=== PATIENT | female | born 1940 | race Caucasian/White ===

== ENCOUNTER 2016-10-08 10:19 | Day surgery (SDC) ==
[2016-07-09 13:55] VITALS: BMI 29.2
[2016-10-08] MEDS ORDERED: LIDOCAINE 1% 20 ML MDV ID ONE (11:42)
[2016-10-08] MEDS ORDERED: LIDOCAINE 1% 20 ML MDV ONE (11:42)
[2016-10-08] MEDS ORDERED: VERSED ONE (11:44)
[2016-10-08] MEDS ORDERED: LIDOCAINE 2% 20 ML MDV ONE (11:44)
[2016-10-08] MEDS ORDERED: DIPRIVAN 20 ML VIAL IVP ONE (11:44)
[2016-10-08] MEDS ORDERED: LIDOCAINE HCL 2% LUER-JET ONE (11:44)
[2016-10-08 13:07] VITALS: BP 156/78; TEMP 98.8
--- NOTE | 2016-10-08 14:35 | OP ---
PROCEDURE: EGD (ESOPHAGOGASTRODUODENOSCOPY) WITH BIOPSY. ENDOSCOPIST: Shelly GRAF M.D. INDICATION: FOLLOW UP ESOPHAGEAL ULCER. INSTRUMENT: [id number]. MEDICATION: PER ANESTHESIA. PROCEDURE: The patient was positioned for endoscopy. The oropharynx was sprayed with Cetacaine spray and the endoscope was advanced through the bite block into the esophagus and from there advanced to the duodenum. The duodenum was normal. The pylorus was patent. There is erythema noted throughout the prepyloric and pyloric area but no discreet ulcer is noted. Biopsies for H. Pylori are obtained from the antrum. On retroflex exam she has a hiatal hernia, an asymptomatic distal esophageal ring is noted. There is no evidence for esophageal ulcers at this time. She tolerated the procedure without immediate complication. PLAN: 1. Will follow up on her pathology. 2. Continue current medications. CC: DR. HITESH SWANN
--- NOTE | 2016-10-08 14:38 | OP ---
PROCEDURE: COLONOSCOPY TO THE CECUM. ENDOSCOPIST: Shelly GRAF M.D. INDICATION: HISTORY OF POLYPS. INSTRUMENT: [id number]. MEDICATION: PER ANESTHESIA. PROCEDURE: The patient was positioned for colonoscopy. The digital rectal exam was negative. The colonoscope was inserted through the anus and advanced to the cecum. The cecum was identified using the ileocecal valve and the appendiceal orifice as landmarks. The scope was slowly withdrawn through an adequately prepped colon. Careful inspection is made of each colonic segment as the scope is withdrawn in a circumferential fashion, care was taken to inspect the proximal side of the ileocecal valve, haustral folds, flexures and rectal valves. Diverticula throughout the left colon with one area of mild inflammation being noted. There were no polyps noted on this exam. The retroflex exam was otherwise negative. She tolerated the procedure without immediate complication. Withdrawal time 7 minutes and 25 seconds. PLAN: 1. Will begin Flagyl for 10 days. 2. Repeat colonoscopy in 5 years. CC: DR. HITESH SWANN
== END 2016-10-08 13:15 | disposition home or self-care (01) ==
LOC: SURG 10:19
PROVIDERS: ATTEND Internal Medicine Gastroenterology
DX: Z86.010 Personal history of colon polyps (principal); K22.10 Ulcer of esophagus without bleeding; K22.2 Esophageal obstruction; K44.9 Diaphragmatic hernia without obstruction or gangrene; K57.30 Diverticulosis of large intestine without perforation or abscess without bleeding; B96.81 Helicobacter pylori [H. pylori] as the cause of diseases classified elsewhere
CPT/HCPCS: 00810; 43239; G0105; 87339

== ENCOUNTER 2017-07-23 14:51 | Emergency (ER) | payer OTHER ==
[2017-07-23 14:58] VITALS: TEMP 98.7; BMI 24.6
[2017-07-23] MEDS ORDERED: DECADRON 4 MG/ML SDV IM STA (15:01)
[2017-07-23 15:02] VITALS: BP 188/66
[2017-07-23] MEDS ORDERED: DUONEB NEB STA (15:02)
[2017-07-23] MEDS ORDERED: ZITHROMAX PO STA (15:33)
[2017-07-23] MEDS ORDERED: ROCEPHIN IM STA (15:33)
[2017-07-23] MEDS ORDERED: LIDOCAINE HCL 1% SDV SUBCUT STA (15:33)
--- NOTE | 2017-07-23 15:40 | DI ---
EXAM: PA and lateral views of the chest HISTORY: Cough with flu symptoms COMPARISON: Chest x-ray 05/02/2016 FINDINGS: The cardiomediastinal silhouette is unchanged in appearance with sternotomy wires in place and cardiac valve unchanged. There is no pneumothorax or pleural effusion. There is no consolidati on, nodule or mass. The osseous structures demonstrate multilevel degenerative disease. IMPRESSION: No acute cardiopulmonary process
--- NOTE | 2017-07-23 16:48 | ED.PDOC ---
General ED Provider: Dr. CLARE PEREZ Chief Complaint: Respiratory Complaint Stated Complaint: FLU LIKE SYMPTOMS Time Seen by Physician: 14:59 (DLU LIKE SYMPTOMS SEEN WITH NURSING STAFF AND HENRIQUE ) Mode of Arrival: Walk-In Information Source: Patient Exam Limitations: No limitations Primary Care Provider: SHIRIN PROCTOR Nursing and Triage Documentation Reviewed and Agree: Yes Reviewed sepsis parameters & appropriate labs ordered?: Yes System Inflammatory Response Syndrome: Not Applicable Sepsis Protocol: For patient's 13 years and over: Temp is 96.8 and below OR 101 and greater Pulse >90 BPM Resp >20/minute Acutely Altered Mental Status Are patient's symptoms suggestive of a new infection, such as: -Pneumonia -Skin, Soft Tissue -Endocarditis -UTI -Bone, Joint Infection -Implantable Device -Acute Abdominal Infection -Wound Infection -Meningitis -Blood Stream Catheter Infection -Unknown System Inflammatory Response Syndrome: Not Applicable Respiratory Complaint Exam - Respiratory Complaint/Exam Onset/Duration: 3 DAYS OF FLU LIKE SYMP BODY ACHES ,COUGH ,CHILLS Symptoms Are: Still present Timing: Constant Initial Severity: Moderate Current Severity: Moderate Location: Nose, Throat, Chest Character: Reports: Non-productive cough Aggravating: Reports: None Alleviating: Reports: Bronchodilators, Spontaneous resolution Associated Signs and Symptoms: Reports: Chills, Nasal congestion, Sore throat. Denies: Rapid breathing, Dyspnea, Fever, Chest pain, Pleuritic chest pain, Wheezing, Hemoptysis, Dizziness, Calf pain, Calf swelling, Edema, URI, Hoarseness, Sinus discomfort, Vomiting, Weight loss, Decreased oral intake, Increased thirst, Increased appetite, Increased urination History of Healthcare-Acquired Pneumonia: No Related Surgical History: Reports: None Pulmonary Embolism Risk Factors: Bedrest Cardiac Risk Factors: Reports: Elevated lipids, Hypertension Tuberculosis Risk Factors: Reports: None Status Asthmaticus Risk Factors: Reports: None Home Oxygen Use: No Recent Stress Test: No Recent Echo/LV Function: No Current Antibiotic Use: No Current Asthma Medication Use: No Respiratory Distress: None Inadequate Respiratory Effort: No Dysphagia Present: No Stridor Present: No JVD Present: No Accessory Muscle Use: No Retractions: Not Present Diminished Breath Sounds: No Sinus Tenderness: None Grunting Respirations: No Kussmaul Respirations: No Differential Diagnoses: Pneumonia, Bronchitis Review of Systems - Review Of Systems Constitutional: Reports: Malaise Eyes: Reports: No symptoms Ears, Nose, Mouth, Throat: Reports: No symptoms Respiratory: Reports: Cough Cardiac: Reports: No symptoms GI: Reports: No symptoms : Reports: No symptoms Musculoskeletal: Reports: No symptoms Skin: Reports: No symptoms Neurological: Reports: No symptoms Endocrine: Reports: No symptoms Hematologic/Lymphatic: Reports: No symptoms All Other Systems: Reviewed and Negative Past Medical History - Past Medical History Endocrine: Reports: Dyslipidemia Cardiovascular: Reports: CAD, Hypertension Respiratory: Reports: Asthma Hematological: Reports: None Gastrointestinal: Reports: None Genitourinary: Reports: None Neuro/Psych: Reports: None, 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) Musculoskeletal: Reports: Arthritis Cancer: Reports: None Last Menstrual Period: N/A - Surgical History General Surgical History: Reports: Stent Placement (cardiac stents, cardiac valve replacement) - Family History Family History: Reports: Unknown - Social History Smoking Status: Former smoker Hx Substance Use: No Alcohol Screening: None Physical Exam - Physical Exam Appearance: Ill-appearing Ill-appearing: Mild Pain Distress: Mild Eyes: YAMILEX, EOMI, Conjunctiva clear ENT: Ears normal, Nose normal, Oropharynx normal Respiratory: Rhonchi, Wheezes Cardiovascular: RRR, Pulses normal, No rub, No murmur GI/: Soft, Nontender, No masses, Bowel sounds normal, No Organomegaly Musculoskeletal: Normal strength, ROM intact, No edema, No calf tenderness Skin: Warm, Dry, Normal color Neurological: Sensation intact, Motor intact, Reflexes intact, Cranial nerves intact, Alert, Oriented Psychiatric: Affect appropriate, Mood appropriate Interpretation - Radiology Interpretation Radiology Interpretation By: Radiologist Radiology Results: Negative Exam Interpreted: CXR Critical Care Note - Critical Care Note Total Time (mins): 0 Course - Course Orders, Labs, Meds: Lab Review 07/23/17 15:05 Influenza A (Rapid) Negative by naat Influenza B (Rapid) Negative by naat Orders Category Date Time Status NEBULIZER TREATMENT Stat CARDIO 07/23/17 15:02 Completed MOLECULAR FLU A/B Stat LAB 07/23/17 15:05 Completed MOLECULAR GROUP A STREP Stat LAB 07/23/17 15:05 Completed Azithromycin [Zithromax] MEDS 07/23/17 15:33 Discontinued 1,000 mg PO ONCE STA Ceftriaxone Sodium [Rocephin] MEDS 07/23/17 15:33 Discontinued 1 gm IM ONCE STA Dexamethasone 4 mg/ml Inj [Decadron 4 mg/ml Sdv] MEDS 07/23/17 15:01 Discontinued 4 mg IM ONCE STA Ipratropium/Albuterol Neb [Duoneb] MEDS 07/23/17 15:02 Discontinued 1 vial NEB ONCE STA Lidocaine HCl/Pf [Lidocaine HCl 1% Sdv] MEDS 07/23/17 15:33 Discontinued 5 ml SUBCUT ONCE STA CHEST, 2 VIEWS PA & LAT Stat RADS 07/23/17 15:01 Completed Medications Discontinued Medications Generic Name Dose Route Start Last Admin Trade Name Doris PRN Reason Stop Dose Admin Albuterol/Ipratropium 1 vial 07/23/17 15:02 07/23/17 15:13 Duoneb NEB 07/23/17 15:03 1 vial ONCE STA Administration Azithromycin 1,000 mg 07/23/17 15:33 07/23/17 15:46 Zithromax PO 07/23/17 15:34 1,000 mg ONCE STA Administration Ceftriaxone Sodium 1 gm 07/23/17 15:33 07/23/17 15:46 Rocephin IM 07/23/17 15:34 1 gm ONCE STA Administration Dexamethasone Sodium Phosphate 4 mg 07/23/17 15:01 07/23/17 15:48 Decadron 4 Mg/Ml Sdv IM 07/23/17 15:02 4 mg ONCE STA Administration Lidocaine HCl 5 ml 07/23/17 15:33 07/23/17 15:47 Lidocaine Hcl 1% Sdv SUBCUT 07/23/17 15:34 2.1 ml ONCE STA Administration Vital Signs: Temp Pulse Resp BP Pulse Ox 07/23/17 14:52 98.7 F 68 24 188/66 H 98 Departure - Departure Time of Disposition: 16:49 (WITH HENRIQUE AT BEDSIDE WENT OVER REPORTS AND TREATMENT DONE AT [facility] AND WHAT PT MUST DO IN AM. ) Disposition: HOME SELF-CARE Discharge Problem: Viral syndrome Instructions: Viral Syndrome (ED) Condition: Good Pt referred to PMD for follow-up: Yes Additional Instructions: Please call your Family Physician as soon as possible to schedule a follow-up appointment. Prescriptions: Hydrocodone/Chlorphen Polis [Tussionex] 5 ml PO Q12HR 7 Days disp.syrin Allergies/Adverse Reactions: Allergies aminophylline Adverse Reaction (Verified 07/23/17 14:58) codeine Adverse Reaction (Verified 07/23/17 14:58) haloperidol [From Haldol] Adverse Reaction (Verified 07/23/17 14:58) Sulfa (Sulfonamide Antibiotics) Adverse Reaction (Verified 07/23/17 14:58) Home Medications: Ambulatory Orders Amlodipine Besylate [Norvasc] 2.5 mg PO BEDTIME 11/26/15 Aspirin [Adult Low Dose Aspirin EC] 81 mg PO DAILY 11/26/15 Calcium Carbonate/Vitamin D3 [Calcium 600 + Vit D Tablet] 1 tab PO DAILY Enalapril Maleate [Vasotec] 5 mg PO DAILY 11/26/15 Furosemide [Lasix] 20 mg PO DAILY 11/26/15 Lovastatin 80 mg PO BEDTIME 11/26/15 Metoprolol Tartrate [Lopressor] 25 mg PO BID 11/26/15 Montelukast Sodium [Singulair] 10 mg PO BEDTIME 11/26/15 Omeprazole [Prilosec] 20 mg PO QDAC 11/26/15 Potassium Chloride 10 meq PO DAILY 11/26/15 Raloxifene HCl [Evista] 60 mg PO DAILY 11/26/15 Carbidopa/Levodopa [Sinemet 25-100] 1 tab PO DAILY 07/09/16 Hydrocodone/Acetaminophen [Cresco 7.5-325 Tablet] 1 each PO Q6HR PRN #20 tablet 07/09/16 Hydrocodone/Chlorphen Polis [Tussionex] 5 ml PO Q12HR 7 Days disp.syrin Disposition Discussed With: Patient, Family
== END 2017-07-23 17:10 | disposition home or self-care (01) ==
LOC: ED 14:51
DX: B34.9 Viral infection, unspecified (principal); E78.5 Hyperlipidemia, unspecified; I10 Essential (primary) hypertension; Z79.899 Other long term (current) drug therapy
CPT/HCPCS: 87502; 87651; 94640; 96372; 99283

== ENCOUNTER 2017-09-13 11:48 | Inpatient (IN) ==
[2017-09-13] MEDS ORDERED: ASPIRIN CHEWABLE PO STA (11:51)
[2017-09-13] MEDS ORDERED: ASPIRIN CHEWABLE ONE (11:52)
[2017-09-13 11:59] VITALS: BMI 22.8
[2017-09-13] MEDS ORDERED: MORPHINE 2 MG/ML SYRINGE IVP STA (12:09)
--- NOTE | 2017-09-13 12:13 | DI ---
EXAM: Chest two view, frontal and lateral views. HISTORY: Chest pain. COMPARISON: 07/23/2017. FINDINGS: Median sternotomy wires and prosthetic cardiac valve again noted. Implantable loop record er also seen. The heart size is normal. Atherosclerotic calcifications are present. There is no pu lmonary vascular congestion. The lungs are clear save for calcified granulomatous changes. No pleur al effusion or pneumothorax is seen. No acute osseous abnormality identified. Since the prior study , there has been no significant interval change. IMPRESSION: No acute cardiopulmonary process.
[2017-09-13] MEDS ORDERED: NON-FORMULARY MEDICATION (Hydrocodone Bit/Acetaminophen 1 TAB) PO PRN (12:46)
--- NOTE | 2017-09-13 12:51 | ED.PDOC ---
General ED Provider: Dr. CLARE PEREZ Chief Complaint: Chest Pain Stated Complaint: CHEST PAIN Time Seen by Physician: 11:49 (SEEN WITH ANGEL PERRY AND TASHI FROM [facility] AT ALL TIMES ALSO AT BEDSIDE ) Mode of Arrival: Walk-In Information Source: Patient Exam Limitations: No limitations Primary Care Provider: KAYLAH QUINN Nursing and Triage Documentation Reviewed and Agree: Yes Reviewed sepsis parameters & appropriate labs ordered?: Yes (PAIN ONSET 9AM ) System Inflammatory Response Syndrome: Not Applicable Sepsis Protocol: For patient's 13 years and over: Temp is 96.8 and below OR 101 and greater Pulse >90 BPM Resp >20/minute Acutely Altered Mental Status Are patient's symptoms suggestive of a new infection, such as: -Pneumonia -Skin, Soft Tissue -Endocarditis -UTI -Bone, Joint Infection -Implantable Device -Acute Abdominal Infection -Wound Infection -Meningitis -Blood Stream Catheter Infection -Unknown System Inflammatory Response Syndrome: Not Applicable Cardiovascular Complaint Exam - Chest Pain Complaint/Exam Onset: Sudden Duration: 0NSET 9AM TODAY ARRIVED WITH 7/10 CHEST PAIN Symptoms Are: Resolved (IMPROVED HAS RESIDUAL PAIN 2/10 AT 1300) Length of Chest Pain Episodes: 4 HRS Initial Severity: Moderate Current Severity: Moderate Location: Reports: Midsternal Pain Radiates: Reports: Left shoulder Character: Reports: Tightness Aggravating: Reports: None Alleviating: Reports: OTC meds (MORPHINE, 02, AND ASPRIN, TOOK ONE 81 MG ASPRIN THIS MORNING) Associated Signs and Symptoms: Denies: Diaphoresis, Nausea, Vomiting, Fever, Palpitations, Cough, Hemoptysis, Back pain, Abdominal pain, Dizziness, Short of air, Calf pain, Calf swelling Related History: Reports: Current ARBs Related Surgical History: Reports: CABG (2007) AMI/ACS Risk Factors: Reports: Sedentary, Hypertension, Dyslipidemia TAD Risk Factors: Reports: Hypertension Pulmonary Embolism Risk Factors: Reports: Bedrest Prior Care for this Complaint: Yes (HAD STENT 2007 ) Recent Stress Test: No Recent Echo/LV Function: No JVD Present: No Subcutaneous Emphysema Present: No Diminshed Breath Sounds: No Reproducible Chest Wall Pain: No Bilateral Pulses Present: No Unequal Pulses Noted: No If Risk Factors for AMI/ACS Consider: EKG, Cardiac Enzymes Differential Diagnoses: ACS, Stable Angina, Unstable Angina, Lower Resp. Infection Quality Indicators For Acute IN or Cardiac Chest Pain: EKG in 10min. (X2) Quality Indicator For Non-Traumatic Chest Pain/Syncope: EKG Performed Quality Indicators For Pneumonia/CAP: SpO2 assessed Review of Systems - Review Of Systems Constitutional: Reports: No symptoms Eyes: Reports: No symptoms Ears, Nose, Mouth, Throat: Reports: No symptoms Respiratory: Reports: No symptoms Cardiac: Reports: Chest pain (MINOR BRUSING ON THE CHEST WALL ) GI: Reports: No symptoms : Reports: No symptoms Musculoskeletal: Reports: No symptoms Skin: Reports: No symptoms Neurological: Reports: No symptoms Endocrine: Reports: No symptoms Hematologic/Lymphatic: Reports: No symptoms All Other Systems: Reviewed and Negative Past Medical History - Past Medical History Previously Healthy: Yes Endocrine: Reports: Dyslipidemia Cardiovascular: Reports: CAD, Hypertension Respiratory: Reports: Asthma Hematological: Reports: None Gastrointestinal: Reports: None Genitourinary: Reports: None Neuro/Psych: Reports: None, 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) Musculoskeletal: Reports: Arthritis Cancer: Reports: None Last Menstrual Period: NA - Surgical History General Surgical History: Reports: Stent Placement (cardiac stents, cardiac valve replacement) - Family History Family History: Reports: Unknown - Social History Smoking Status: Former smoker Hx Substance Use: No Alcohol Screening: None Physical Exam - Physical Exam Appearance: Well-appearing, No pain distress, Well-nourished Eyes: YAMILEX, EOMI, Conjunctiva clear ENT: Ears normal, Nose normal, Oropharynx normal Respiratory: Airway patent, Breath sounds clear, Breath sounds equal, Respirations nonlabored Cardiovascular: RRR, Pulses normal, No rub, No murmur GI/: Soft, Nontender, No masses, Bowel sounds normal, No Organomegaly Musculoskeletal: Normal strength (2 ADJACENT ECCYMOTIC AREAS ON THE CHEST EACH MEASURING 2 CM IN DIAMETER SEE PHOTOS), ROM intact, No edema, No calf tenderness Skin: Warm, Dry, Normal color Neurological: Sensation intact, Motor intact, Reflexes intact, Cranial nerves intact, Alert, Oriented Psychiatric: Affect appropriate, Mood appropriate Physician Notification - Case Discussed Physician Notified: PMD Time of Notification: 13:00 Critical Care Note - Critical Care Note Total Time (mins): 0 Course - Course Hematology/Chemistry: 09/13/17 12:00 09/13/17 12:00 Orders, Labs, Meds: Lab Review 09/13/17 09/13/17 09/13/17 12:00 12:00 12:00 WBC 4.88 RBC 3.33 L Hgb 10.4 L Hct 31.7 L MCV 95.2 MCH 31.2 H MCHC 32.8 RDW Coeff of Domo 14.6 Plt Count 145 Immature Gran % (Auto) 0.4 Neut % (Auto) 58.1 Lymph % (Auto) 30.5 Robeson % (Auto) 9.6 Eos % (Auto) 1.2 Baso % (Auto) 0.2 Immature Gran # (Auto) 0.0 Neut # 2.8 Lymph # 1.5 Robeson # 0.5 Eos # 0.1 Baso # 0.0 PT 10.9 INR 1.07 APTT 24.8 Puncture Site O2 Saturation ABG pH ABG pCO2 ABG pO2 ABG HCO3 ABG Total CO2 ABG Base Excess Sp Test FiO2 % Sodium 144 Potassium 3.9 Chloride 110 H Carbon Dioxide 23 Anion Gap 14.9 BUN 12 Creatinine 0.74 Estimated GFR (MDRD) 76.00 BUN/Creatinine Ratio 16.21 Glucose 103 Calcium 9.3 Total Bilirubin 0.6 AST 23 ALT 13 Alkaline Phosphatase 61 Total Creatine Kinase 49 Troponin I 0.1440 Total Protein 6.4 Albumin 3.9 Globulin 2.5 Albumin/Globulin Ratio 1.56 09/13/17 13:44 WBC RBC Hgb Hct MCV MCH MCHC RDW Coeff of Domo Plt Count Immature Gran % (Auto) Neut % (Auto) Lymph % (Auto) Robeson % (Auto) Eos % (Auto) Baso % (Auto) Immature Gran # (Auto) Neut # Lymph # Robeson # Eos # Baso # PT INR APTT Puncture Site L brachial O2 Saturation 100.0 ABG pH 7.620 H* ABG pCO2 20.8 L ABG pO2 130.0 H ABG HCO3 21.4 L ABG Total CO2 22 ABG Base Excess 0 Sp Test + FiO2 % 21.0 Sodium Potassium Chloride Carbon Dioxide Anion Gap BUN Creatinine Estimated GFR (MDRD) BUN/Creatinine Ratio Glucose Calcium Total Bilirubin AST ALT Alkaline Phosphatase Total Creatine Kinase Troponin I Total Protein Albumin Globulin Albumin/Globulin Ratio Orders Category Date Time Status ABG DRAW REQUEST Stat CARDIO 09/13/17 13:44 Completed EKG-(ED ONLY) Stat CARDIO 09/13/17 11:49 Completed EKG-(ED ONLY) Stat CARDIO 09/13/17 12:30 Completed EKG-(ED ONLY) Stat CARDIO 09/13/17 13:15 Completed EKG-(IP & OP ONLY) DAILY CARDIO 09/14/17 06:00 Ordered EKG-(IP & OP ONLY) DAILY CARDIO 09/15/17 06:00 Ordered EKG-(IP & OP ONLY) DAILY CARDIO 09/16/17 06:00 Ordered INTAKE & OUTPUT Q8HR CARE 09/13/17 14:29 Active NPO REMINDER: IMAGING ONCE CARE 09/13/17 12:58 Completed ABG Stat LAB 09/13/17 13:44 Completed CBC W/ AUTO DIFF Stat LAB 09/13/17 12:00 Completed COMPREHENSIVE METABOLIC PANEL Stat LAB 09/13/17 12:00 Completed CREATINE KINASE Q8H LAB 09/13/17 20:30 Ordered CREATINE KINASE Q8H LAB 09/14/17 04:30 Ordered CREATINE KINASE Stat LAB 09/13/17 12:00 Completed PARTIAL THROMBOPLASTIN TIME Stat LAB 09/13/17 12:00 Completed PT WITH INR Stat LAB 09/13/17 12:00 Completed TROPONIN I Q8H LAB 09/13/17 20:30 Ordered TROPONIN I Q8H LAB 09/14/17 04:30 Ordered TROPONIN I Stat LAB 09/13/17 12:00 Completed Amlodipine Besylate [Norvasc] MEDS 09/13/17 21:00 Active 2.5 mg PO BEDTIME Aspirin [Aspirin Chewable] MEDS 09/13/17 11:52 Discontinued 243 mg .ROUTE .STK-MED ONE Aspirin [Aspirin Chewable] MEDS 09/13/17 11:51 Discontinued 264 mg PO ONCE STA Aspirin [Aspirin Chewable] MEDS 09/14/17 08:00 Active 81 mg PO DAILYWM Enalapril Maleate [Vasotec] MEDS 09/14/17 09:00 Active 5 mg PO DAILY Furosemide [Lasix Tab] MEDS 09/14/17 06:30 Active 20 mg PO QDAC Hydrocodone Bit/Acetaminophen [Tarrs 5-325] MEDS 09/13/17 13:18 Active 1 tab PO Q4-6H PRN Hydrocortisone Sod Succ/Pf [Solu-Cortef 100 mg] MEDS 09/13/17 13:38 Discontinued 100 mg IVP ONCE STA Ketorolac Tromethamine [Toradol] MEDS 09/13/17 13:31 Discontinued 30 mg IVP ONCE STA Lovastatin [Mevacor] MEDS 09/13/17 21:00 Active 80 mg PO BEDTIME Mag-Al Plus//Lidocaine [Gi Cocktail] MEDS 09/13/17 13:37 Discontinued 30 ml PO ONCE STA Metoprolol Tartrate [Lopressor] MEDS 09/13/17 17:30 Active 25 mg PO BIDWM Morphine Sulfate [Morphine 2 mg/ml Syringe] MEDS 09/13/17 12:09 Discontinued 2 mg IVP ONCE STA Sodium Chloride 0.9% [Sodium Chloride] 1,000 ml MEDS 09/13/17 14:28 Active IV 75 mls/hr CHEST, 1V AP ONLY Stat RADS 09/13/17 11:[address] CHEST W/CONTRAST Stat RADS 09/13/17 12:56 Completed Medications Generic Name Dose Route Start Last Admin Trade Name Freq PRN Reason Stop Dose Admin Acetaminophen/Hydrocodone Bitart 1 tab 09/13/17 13:18 Tarrs 5-325 PO Q4-6H PRN PAIN Amlodipine Besylate 2.5 mg 09/13/17 21:00 Norvasc PO BEDTIME ALONZO Aspirin 81 mg 09/14/17 08:00 Aspirin Chewable PO DAILYWM ALONZO Enalapril Maleate 5 mg 09/14/17 09:00 Vasotec PO DAILY ALONZO Furosemide 20 mg 09/14/17 06:30 Lasix Tab PO QDAC ALONZO Sodium Chloride 1,000 mls @ 75 mls/hr 09/13/17 14:28 Sodium Chloride IV 09/14/17 03:47 .[id number] STA Lovastatin 80 mg 09/13/17 21:00 Mevacor PO BEDTIME ALONZO Metoprolol Tartrate 25 mg 09/13/17 17:30 Lopressor PO BIDWM ALONZO Discontinued Medications Generic Name Dose Route Start Last Admin Trade Name Freq PRN Reason Stop Dose Admin Al Hydroxide/Mg Hydroxide 30 ml 09/13/17 13:37 09/13/17 14:08 Gi Cocktail PO 09/13/17 13:38 30 ml ONCE STA Administration Aspirin 264 mg 09/13/17 11:51 09/13/17 14:22 Aspirin Chewable PO 09/13/17 11:52 Not Given ONCE STA Hydrocortisone Sodium Succinate 100 mg 09/13/17 13:38 09/13/17 14:09 Solu-Cortef 100 Mg IVP 09/13/17 13:39 100 mg ONCE STA Administration Ketorolac Tromethamine 30 mg 09/13/17 13:31 09/13/17 14:12 Toradol IVP 09/13/17 13:32 30 mg ONCE STA Administration Morphine Sulfate 2 mg 09/13/17 12:09 09/13/17 12:16 Morphine 2 Mg/Ml Syringe IVP 09/13/17 12:10 2 mg ONCE STA Administration Vital Signs: Temp Pulse Resp BP Pulse Ox 09/13/17 11:49 97.2 F L 59 L 22 136/80 97 ILENE Risk Score ILENE Risk Score: Risk Score Odds of by 30D 0 0.1 (0.1-0.2) 1 0.3 (0.2-0.3) 2 0.4 (0.3-0.5) 3 0.7 (0.6-0.9) 4 1.2 (1.0-1.5) 5 2.2 (1.9-2.6) 6 3.0 (2.5-3.6) 7 4.8 (3.8-6.1) Departure - Departure Time of Disposition: 14:00 Disposition: ADMITTED INPATIENT Discharge Problem: Chest pain Instructions: Angina (ED), Angina (DC), Chest Pain (ED), Chest Pain (DC) Condition: Good Pt referred to PMD for follow-up: Yes IPMP verified?: No Additional Instructions: Please call your Family Physician as soon as possible to schedule a follow-up appointment. Allergies/Adverse Reactions: Allergies aminophylline Adverse Reaction (Verified 09/13/17 12:01) codeine Adverse Reaction (Verified 09/13/17 12:01) haloperidol [From Haldol] Adverse Reaction (Verified 09/13/17 12:01) Sulfa (Sulfonamide Antibiotics) Adverse Reaction (Verified 09/13/17 12:01) Home Medications: Ambulatory Orders Amlodipine Besylate [Norvasc] 2.5 mg PO BEDTIME 09/13/17 Aspirin 81 mg PO DAILY 09/13/17 Calcium Carbonate/Vitamin D3 [Calcium 1,000 + D3 Caplet] 1 each PO DAILY Enalapril Maleate [Vasotec] 5 mg PO DAILY 09/13/17 Furosemide [Lasix] 20 mg PO DAILY 09/13/17 Hydrocodone Bit/Acetaminophen [Lortab 5-500] 1 tab PO Q4-6H PRN 09/13/17 Lovastatin 80 mg PO BEDTIME 09/13/17 Metoprolol Tartrate [Lopressor] 25 mg PO BID 09/13/17 Montelukast Sodium [Singulair] 10 mg PO BEDTIME 09/13/17 Omeprazole [Prilosec] 20 mg PO QDAC 09/13/17
[2017-09-13] MEDS ORDERED: TORADOL IVP STA (13:31)
[2017-09-13] MEDS ORDERED: GI COCKTAIL PO STA (13:37)
[2017-09-13] MEDS ORDERED: SOLU-CORTEF 100 MG IVP STA (13:38)
--- NOTE | 2017-09-13 14:22 | CT ---
EXAM: CT chest with contrast. HISTORY: Blunt chest trauma 3 days prior. COMPARISON: Radiograph earlier the same day. Chest CT 08/24/2009. TECHNIQUE: Multiple axial images of the chest were obtained following intravenous administration of , low osmolar. Images were reformatted in the sagittal and coronal planes. FINDINGS: There has been previous sternotomy. Heart size is at the upper limits of normal. No win cardial effusion identified. Atherosclerotic calcifications present. There is no evidence for aorti c dissection. No lymphadenopathy identified. There are calcified lymph nodes present. There are mi ld emphysematous changes present bilaterally. No consolidation, pleural effusion or pneumothorax jesús ntified. Calcified granulomatous changes noted. Subcutaneous edema in the upper left breast on axial image 17 noted. Degenerative changes present in the spine. Suspect old bilateral anterior rib fractures. Limited images of the upper abdomen demonstrate no acute finding. IMPRESSION: 1. Suspect contusion of the anterior left upper chest. No acute intrathoracic abnormality. 2. Mild emphysema.
[2017-09-13] MEDS ORDERED: SODIUM CHLORIDE 1,000 ML IV STA (14:28)
[2017-09-13] MEDS ORDERED: TORADOL IVP PRN (16:39)
[2017-09-13] MEDS: LOPRESSOR PO SCH (16:58)
[2017-09-13] MEDS: PROTONIX IV IVP SCH (20:09)
[2017-09-13] MEDS: NORVASC PO SCH (20:09)
[2017-09-13] MEDS: MEVACOR PO SCH (20:09)
[2017-09-13] MEDS: SOLU-CORTEF 100 MG IVP SCH (20:09)
[2017-09-13] MEDS: NORCO 5-325 PO PRN (20:09)
[2017-09-13] MEDS ORDERED: NON-FORMULARY MEDICATION (Amlodipine Besylate [Norvasc] 2.5 MG) PO SCH (21:00)
[2017-09-13] MEDS ORDERED: NON-FORMULARY MEDICATION (Lovastatin [Lovastatin] 80 MG) PO SCH (21:00)
[2017-09-13] MEDS ORDERED: PROTONIX IV 40 MG in SODIUM CHLORIDE 100 ML IV SCH (21:00)
[2017-09-14] MEDS: LASIX TAB PO SCH (06:14)
[2017-09-14] MEDS: NORCO 5-325 PO PRN (06:14)
[2017-09-14] MEDS ORDERED: SODIUM CHLORIDE 500 ML IV SCH (07:30)
[2017-09-14] MEDS ORDERED: SODIUM CHLORIDE 1,000 ML IV SCH (07:30)
[2017-09-14] MEDS: SOLU-CORTEF 100 MG IVP SCH ×2 (08:20→20:49)
[2017-09-14] MEDS: PROTONIX IV IVP SCH ×2 (08:21→20:46)
[2017-09-14] MEDS: ASPIRIN CHEWABLE PO SCH (08:21)
[2017-09-14] MEDS: VASOTEC PO SCH (08:22)
[2017-09-14] MEDS: LOPRESSOR PO SCH ×2 (08:22→17:52)
[2017-09-14] MEDS: NORVASC PO SCH (20:44)
[2017-09-14] MEDS: MEVACOR PO SCH (20:44)
[2017-09-15] MEDS: LASIX TAB PO SCH (05:47)
[2017-09-15] MEDS: VASOTEC PO SCH (08:45)
[2017-09-15] MEDS: LOPRESSOR PO SCH ×2 (08:45→18:10)
[2017-09-15] MEDS: SOLU-CORTEF 100 MG IVP SCH ×2 (08:45→21:13)
[2017-09-15] MEDS: PROTONIX IV IVP SCH ×2 (08:45→21:13)
[2017-09-15] MEDS: ASPIRIN CHEWABLE PO SCH (08:45)
[2017-09-15] MEDS: MEVACOR PO SCH (21:10)
[2017-09-15] MEDS: NORVASC PO SCH (21:11)
[2017-09-16] MEDS: LASIX TAB PO SCH (06:15)
[2017-09-16] MEDS: VASOTEC PO SCH (09:38)
[2017-09-16] MEDS: K-DUR PO SCH ×4 (09:38→20:45)
[2017-09-16] MEDS: SOLU-CORTEF 100 MG IVP SCH (09:38)
[2017-09-16] MEDS: PROTONIX IV IVP SCH (09:39)
[2017-09-16] MEDS: ASPIRIN CHEWABLE PO SCH (09:39)
[2017-09-16] MEDS: LOPRESSOR PO SCH ×2 (09:39→18:22)
[2017-09-16] MEDS ORDERED: PROTONIX PO SCH (11:00)
[2017-09-16] MEDS: PROTONIX PO SCH (18:22)
[2017-09-16] MEDS: PREDNISONE PO SCH (18:22)
[2017-09-16] MEDS: MEVACOR PO SCH (20:44)
[2017-09-16] MEDS: NORVASC PO SCH (20:45)
[2017-09-17] MEDS: PROTONIX PO SCH (05:52)
[2017-09-17] MEDS: LASIX TAB PO SCH (05:52)
[2017-09-17] MEDS: ASPIRIN CHEWABLE PO SCH (09:59)
[2017-09-17] MEDS: VASOTEC PO SCH (09:59)
[2017-09-17] MEDS: LOPRESSOR PO SCH (09:59)
[2017-09-17] MEDS: K-DUR PO SCH (09:59)
[2017-09-17] MEDS: PREDNISONE PO SCH (10:00)
--- NOTE | 2017-09-17 10:00 | PN ---
DATE OF SERVICE: 09/13/17-The patient was seen in the emergency room as well as room 103. REASON FOR HOSPITALIZATION: Chest pain HISTORY OF PRESENT ILLNESS: 73 year old white female had chest tightness superficial to the chest wall also somewhat deep across for 2-3 hour duration before she came to the emergency room. The patient did not have any shortness of breath or sweating. The patient' s says that she had similar type of pain three weeks ago when she went to [place]. In the [facility] she had all cardiac workup according to Dr. Nelson, Dr. Avery at [facility]. The patient's arteries were clear. She was transferred to [facility] because of the valve replacement and possible of aortic regurgitation. The patient had well at [facility] and was discharged because chest pain was mostly noncardiac. REVIEW OF SYSTEMS: CONSTITUTIONAL: No night sweats. No fatigue, malaise, lethargy. No fever or chills. HEENT: Eyes: No visual changes. No eye pain. No eye discharge. ENT: No runny nose. No epistaxis. No sinus pain. No sore throat. No odynophagia. No ear pain. No congestion. RESPIRATORY: No cough, no congestion. No hemoptysis. No shortness of breath. CARDIOVASCULAR: No angina symptoms. No CHF symptoms. No atypical chest pain for CAD. No palpitations. No orthopnea. Chest pain with steady ache across, chest wall pain. Some localized tenderness. Deep chest pains. GASTROINTESTINAL: No abdominal pain. No nausea or vomiting. No diarrhea or constipation. No hematemesis. No hematochezia. Mild epigastric discomfort. Mild reflux symptoms. GENITOURINARY: No urgency. No frequency. No dysuria. No hematuria. No obstructive symptoms. No discharge. No pain. No significant abnormal bleeding. MUSCULOSKELETAL: No musculoskeletal pain. No joint swelling. No arthritis. NEUROLOGICAL: No headache. No neck pain. No syncope. No seizures. No dizziness. PSYCHIATRIC: Not anxious. No depression. No suicidal thoughts. No homicidal thoughts. SKIN: No rash. No lesions. No wounds. ENDOCRINE: No unexplained weight loss. No weight gain. HEMATOLOGIC/LYMPHATIC: No anemia. No purpura. No petechiae. No prolonged or excessive bleeding. No palpable lymph nodes. PHYSICAL EXAMINATION: GENERAL: The patient is oriented to time, place and person. HEENT: Head normocephalic, atraumatic. Eyes: Extraocular muscles are intact. Pupils are equal, round and reactive to light and accommodation. Ears: No lesions. Nose appeared normal. Throat: No exudate or erythema. NECK: Supple. No JVP, no carotid bruit. No lymphadenopathy or thyromegaly. LUNGS: Decreased breath sounds but clear to auscultation. Percussion note normal. Chest symmetrical. HEART: S1, S2, no S3. No murmurs. No cyanosis or clubbing. No ascites. Pulses: Dorsalis pedis and posterior tibial pulses +1 to +2 both sides. ABDOMEN: Soft. Nontender. Bowel sounds active. No CVA tenderness. No mass felt. EXTREMITIES: No edema. Full range of motion of all extremities, equal. NEUROLOGIC: No focal deficit. Cranial nerves II through XII are grossly intact. No headache, no double vision or headache. SKIN: Not dry. Intact. Turgor - normal. LYMPHATIC: No palpable lymph nodes/no lymphedema. MUSCULOSKELETAL: Normal joints with no swelling. Muscle tone is normal. ASSESSMENT: 1. Chest pain seems to be noncardiac so far the cardiac markers are negative. 3 EKG's were done in the emergency room and they are sinus rhythm, bradycardia and no acute changes. CT angiogram was negative except for chest wall contusion. The patient had fallen a couple of weeks ago at home with bruising of the sternum and upper extremity, shoulder area. PLAN: 1. Telemetry 2. EKG 3. Cardiac Markers 4. Toradol IV 30mg 5. Solu-Cortef 100mg Q 12 hours 6. GI cocktail 7. Protonix 8. Continue on the home medications. CONDITION: Stable TIME SPENT: More than 30 minutes MTDD
[2017-09-17 10:16] VITALS: BP 144/53; TEMP 97.8
--- NOTE | 2017-09-17 10:32 | PN ---
DATE OF SERVICE: 09/14/17 SUBJECTIVE: 77 year old white female hospitalized with chest pain. The patient has practically no chest pain, mild chest soreness. All the test reports discussed, the is in the room. REVIEW OF SYSTEMS: CONSTITUTIONAL: No night sweats. No fatigue, malaise, lethargy. No fever or chills. Strength improving. HEENT: Eyes: No visual changes. No eye pain. No eye discharge. ENT: No runny nose. No epistaxis. No sinus pain. No sore throat. No odynophagia. No congestion. RESPIRATORY: No cough, no congestion. No hemoptysis. No shortness of breath. CARDIOVASCULAR: No angina symptoms. No CHF symptoms. No atypical chest pain for CAD. No palpitations. No orthopnea. Mild chest soreness. Mostly chest wall pain. GASTROINTESTINAL: No abdominal pain. No nausea or vomiting. No diarrhea or constipation. No hematemesis. No hematochezia. Appetite improving. GENITOURINARY: No urgency. No frequency. No dysuria. No hematuria. No obstructive symptoms. No discharge. No pain. No significant abnormal bleeding. MUSCULOSKELETAL: No musculoskeletal pain; no joint swelling. NEUROLOGICAL: No headache. No neck pain. No syncope. No seizures. No dizziness. PSYCHIATRIC: Not anxious. No depression. No suicidal thoughts. No homicidal thoughts. SKIN: No rash. No lesions. No wounds. ENDOCRINE: No unexplained weight loss. No weight gain. HEMATOLOGIC/LYMPHATIC: No anemia. No purpura. No petechiae. No prolonged or excessive bleeding. No palpable lymph nodes. PHYSICAL EXAMINATION: GENERAL: The patient is oriented to time, place and person. VITAL SIGNS: Temperature 97.3, pulse 59, respiratory rate 16, blood pressure 120/50 and pulse ox 98%. HEENT: Head normocephalic, atraumatic. Eyes: Extraocular muscles are intact. Pupils are equal, round and reactive to light and accommodation. Ears: No lesions. Nose appeared normal. Throat: No exudate or erythema. NECK: Supple. No JVD, no carotid bruit. No lymphadenopathy or thyromegaly. LUNGS: Decreased breath sounds but clear to auscultation. Percussion note normal. Chest symmetrical. HEART: S1, S2, no S3. No murmurs. No cyanosis or clubbing. No ascites. Pulses: Dorsalis pedis and posterior tibial pulses +1 to +2 both sides. ABDOMEN: Soft. Nontender. Bowel sounds active. No CVA tenderness. No mass felt. EXTREMITIES: No edema. Full range of motion of all extremities, equal. NEUROLOGIC: No focal deficit. Cranial nerves II through XII are grossly intact. No headache, no double vision or headache. SKIN: Not dry. Intact. Turgor - normal. LYMPHATIC: No palpable lymph nodes/no lymphedema. MUSCULOSKELETAL: Normal joints with no swelling. Muscle tone is normal. LABS: Hgb 9.7, hct 29, WBC 4,300 normal differential, creatinine 0.7, BUN 15, potassium 4.2 ASSESSMENT: 1. Chest pain seems to be chest wall pain 2. Coronary artery disease with history of stent 3. Aortic valve replacement 4. Reflux symptoms PLAN: 1. Continue the same treatment with Toradol and Steroids CONDITION: Improving. TIME SPENT: More than 30 minutes. Plan and coordination of the patient's care discussed in the presence of nurse. HUE
--- NOTE | 2017-09-17 11:42 | CM.DICTOOL ---
ADMISSION: 09/13/17 14:42 DISCHARGE: 2017 DATE OF SERVICE: 09/17/17 FINAL DIAGNOSIS CHEST PAIN, NON-CARDIAC CHEST WALL CONTUSION POST FALL HYPOKALEMIA ANEMIA EMPHYSEMA IMPLANTABLE LOOP RECORDER HYPERTENSION DYSLIPIDEMIA CAD WITH CARDIAC STENT APPLICATION VALVE REPLACEMENT, AORTIC CATARACT EXTRACTION CHOLECYSTECTOMY PREVIOUS SMOKER LAST VITALS Temp Pulse Resp BP Pulse Ox 97.8 F 66 20 144/53 H 100 09/17/17 10:00 09/17/17 10:00 09/17/17 10:00 09/17/17 10:00 09/17/17 10:00 ACTIVE HOME MEDICATIONS Acetaminophen/Hydrocodone Bitart ([place] 5-325) 1 tab PO Q4-6H PRN PRN Reason: PAIN Last Admin: 09/14/17 06:14 Dose: 1 tab Amlodipine Besylate (Norvasc) 2.5 mg PO BEDTIME [facility] Last Admin: 09/16/17 20:45 Dose: 2.5 mg Aspirin (Aspirin Chewable) 81 mg PO DAILYWM [facility] Last Admin: 09/17/17 09:59 Dose: 81 mg Enalapril Maleate (Vasotec) 5 mg PO DAILY [facility] Last Admin: 09/17/17 09:59 Dose: 5 mg Furosemide (Lasix Tab) 20 mg PO QDAC [facility] Last Admin: 09/17/17 05:52 Dose: 20 mg Lovastatin (Mevacor) 80 mg PO BEDTIME [facility] Last Admin: 09/16/17 20:44 Dose: 80 mg Metoprolol Tartrate (Lopressor) 25 mg PO BIDWM [facility] Last Admin: 09/17/17 09:59 Dose: 25 mgmg PO BIDAC [facility] Omeprazole (Prilosec) 20 mg PO QDAC Last Admin: Montelukast Sodium (Singulair) 10 mg PO Bedtime Last Admin: Calcium Carbonate/Vitamin D3 1 each Daily Last Admin: ALLERGIES aminophylline Adverse Reaction (Verified 09/13/17 12:01) codeine Adverse Reaction (Verified 09/13/17 12:01) haloperidol [From Haldol] Adverse Reaction (Verified 09/13/17 12:01) Sulfa (Sulfonamide Antibiotics) Adverse Reaction (Verified 09/13/17 12:01) NEW PRESCRIPTIONS: K-tab 10 meq daily Prednisone 10 mg BID for 4 days SMOKING: Not Applicable DISEASE SPECIFIC EDUCATION: New Medications Activity Safety Appointment LAB REVIEW: 09/17/17 05:11 09/17/17 05:11 09/17/17 05:11: Sodium 142, Potassium 4.0, Chloride 111 H, Carbon Dioxide 24, Anion Gap 11.0, BUN 19 H, Creatinine 0.67, Estimated GFR (MDRD) 85.00, BUN/ Creatinine Ratio 28.35, Glucose 112, Calcium 8.6, Total Bilirubin 0.5, AST 28, ALT 28, Alkaline Phosphatase 48 L, Total Protein 5.4 L, Albumin 3.3 L, Globulin 2.1, Albumin/Globulin Ratio 1.57 09/17/17 05:11: WBC 6.87, RBC 3.11 L, Hgb 9.6 L, Hct 29.0 L, MCV 93.2, MCH 30.9 , MCHC 33.1, RDW Coeff of Domo 14.7, Plt Count 133 L, Immature Gran % (Auto) 0.9 , Neut % (Auto) 71.3, Lymph % (Auto) 19.8, [place] % (Auto) 7.9, Eos % (Auto) 0.0, Baso % (Auto) 0.1, Immature Gran # (Auto) 0.1, Neut # 4.9, Lymph # 1.4, [place] # 0.5, Eos # 0.0, Baso # 0.0 09/16/17 14:10: Potassium 3.1 L PLAN: Discharge home Diet: Regular diet Activity: Resume activity as tolerated Suggestion to remove throw rugs in the home Continue medications as listed on nursing discharge information sheet An appointment is scheduled with Dr. Umaña/Adilia Burciaga APRN on September 20, 2017 AT 1:15 PM Mrs. Hurtado is alert and oriented x 3. Mrs. Hurtado denies chest pain at rest or with exertion. She is independent with ambulation and activities of daily living. She does not require use of an assistive device for ambulation. No abdominal pain or nausea reported. No urinary or bowel incontinence noted. Meal intakes have been 75-100% since her admission. Skin is intact and free of decubitus ulcers, abrasions or rashes. Areas of ecchymosis in various shades of purple/yellow are noted acrosss the upper chest, both upper arms and a small area to the left jaw. Ron Umaña MD Adilia Burciaga APRN
--- NOTE | 2017-09-17 13:29 | DS ---
DATE OF SERVICE: 09/17/17 FINAL DIAGNOSIS: 1. Chest pain, noncardiac 2. Chest wall contusion post fall 3. Hypokalemia 4. Anemia 5. Emphysema 6. Implantable loop recorder 7. Hypertension 8. Dyslipidemia 9. CAD with cardiac stent application 10.Valve replacement, aortic 11.Cataract extraction 12.Cholecystectomy 13.Previous smoker LAST VITALS: Temperature 97.8, pulse 66, respiratory rate 20, blood pressure 144/53 and pulse ox 100. DISCHARGE INSTRUCTIONS: Discharge home. Continue medications as listed on nursing discharge information sheet. An appointment is scheduled with Dr. Umaña/Adilia Burciaga APRN on September 20, 2017 at 1:15pm. MEDICATIONS AT DISCHARGE: [place] 5-325 Q 4-6 hours PRN Norvasc 2.5mg PO bedtime Aspirin 81mg Po daily Vasotec 5mg PO daily Lasix 20mg PO QDAC Mevacor 80,g PO bedtime Lopressor 25mg PO twice a day Prilosec 20mg PO QDAC Singulair 10mg PO bedtime Calcium Carbonate/Vitamin D 3 one each daily ALLERGIES: Aminophylline Codeine Haloperidol Sulfa NEW PRESCRIPTIONS: K-tab 10 meq daily Prednisone 10mg twice a day for 4 days DIET INSTRUCTIONS: Regular diet ACTIVITY: Resume activity as tolerated. Suggestion to remove throw rugs in the home. SMOKING: N/A DISEASE SPECIFIC EDUCATION: New Medication Activity Safety Appointment HOSPITAL COURSE: 77 year old black female hospitalized with chest pain which was substernal crushing type. Also more or less superficial but she also described some as deep. She was workup at [facility] and [facility] in last three weeks with negative results for any ischemia or valvular problems. The pain originating from any valvular. During the stay in the hospital the patient was noted to have normal cardiac markers, EKG was practically was unchanged and acute findings. CT scan of the chest revealed contusion of the chest wall. She had fallen a couple of weeks ago. The patient was treated with Toradol IV and steroids and condition improved. She was up and about with normal appetite. Telemetry did not show any arrhythmia of any significance with no ST-T wave change. The condition at the time of discharge is stable. She was advised to continue the same medication K-Tab 10 meq daily was given with her Lasix, she is already on. The patient is DNR. TIME SPENT: More than 60 minutes. MTDD
--- NOTE | 2017-09-17 13:31 | PN ---
09/13/17: Level 5 09/14/17: Intermediate 09/15/17: Intermediate 09/16/17: Intermediate 09/17/17: D as in discharge MTDD
--- NOTE | 2017-09-17 13:37 | PN ---
DATE OF SERVICE: 09/17/17 SUBJECTIVE: 77 year old white female hospitalized with chest pain. The patient's chest pain has practically subsided. It was more like a chest wall pain with contusion. She has history of coronary artery disease with stent. Her cardiovascular status is stable. REVIEW OF SYSTEMS: CONSTITUTIONAL: No night sweats. No fatigue, malaise, lethargy. No fever or chills. HEENT: Eyes: No visual changes. No eye pain. No eye discharge. ENT: No runny nose. No epistaxis. No sinus pain. No sore throat. No odynophagia. No congestion. RESPIRATORY: No cough, no congestion. No hemoptysis. No shortness of breath. CARDIOVASCULAR: No angina symptoms. No CHF symptoms. No atypical chest pain for CAD. No palpitations. No orthopnea. GASTROINTESTINAL: No abdominal pain. No nausea or vomiting. No diarrhea or constipation. No hematemesis. No hematochezia. GENITOURINARY: No urgency. No frequency. No dysuria. No hematuria. No obstructive symptoms. No discharge. No pain. No significant abnormal bleeding. MUSCULOSKELETAL: No musculoskeletal pain; no joint swelling. NEUROLOGICAL: No headache. No neck pain. No syncope. No seizures. No dizziness. PSYCHIATRIC: Not anxious. No depression. No suicidal thoughts. No homicidal thoughts. SKIN: No rash. No lesions. No wounds. ENDOCRINE: No unexplained weight loss. No weight gain. HEMATOLOGIC/LYMPHATIC: No anemia. No purpura. No petechiae. No prolonged or excessive bleeding. No palpable lymph nodes. PHYSICAL EXAMINATION: VITAL SIGNS: Stable with temperature 98.5, pulse 58, respiratory rate 20, blood pressure 160/60 and pulse ox 98%. HEENT: Head normocephalic, atraumatic. Eyes: Extraocular muscles are intact. Pupils are equal, round and reactive to light and accommodation. Ears: No lesions. Nose appeared normal. Throat: No exudate or erythema. NECK: Supple. No JVD, no carotid bruit. No lymphadenopathy or thyromegaly. LUNGS: Clear to auscultation. Percussion note normal. Chest symmetrical. HEART: S1, S2, no S3. No murmurs. No cyanosis or clubbing. No ascites. Pulses: Dorsalis pedis and posterior tibial pulses +1 to +2 both sides. ABDOMEN: Soft. Nontender. Bowel sounds active. No CVA tenderness. No mass felt. EXTREMITIES: No edema. Full range of motion of all extremities, equal. NEUROLOGIC: No focal deficit. Cranial nerves II through XII are grossly intact. No headache, no double vision or headache. SKIN: Not dry. Intact. Turgor - normal. LYMPHATIC: No palpable lymph nodes/no lymphedema. MUSCULOSKELETAL: Normal joints with no swelling. Muscle tone is normal. LABS: Hgb 9.6, hct 29 stable, potassium was low yesterday and now it 4.2. ASSESSMENT: 1. Chest pain, noncardiac 2. Hypokalemia, resolved. CONDITION: Stable. TIME SPENT: More than 30 minutes. Plan and coordination of the patient's care discussed in the presence of nurse. HUE
--- NOTE | 2017-09-17 14:41 | HP ---
DATE OF SERVICE: 09/13/17 (The patient was seen in the emergency room as well as in Room 103 on 09/13/17) REASON FOR HOSPITALIZATION: Chest pain. HISTORY OF PRESENT ILLNESS: 77-year-old white female came to the emergency room with complaint of having chest pain of a couple hours duration which was across the middle of the chest, substernal described as 2 to 9 on scale of 1 to 10. The patient had no sweating , no shortness of breath. All cardiac markers, troponin negative. The patient had three EKGs done in the emergency room and at that time they were all showing sinus rhythm with no acute changes with sinus bradycardia. The patient had similar type of chest pain two weeks ago and she was taken to [facility] where the workup for any coronary insufficiency was negative including what looks like coronary angiogram. After that she was transferred to [facility] for possibility of any valve problems which she had [place] [address] Marte. The workup was negative at [facility] so she was discharged home. The patient had fallen one week ago with some bruising and chest wall contusion. PAST MEDICAL/SURGICAL HISTORY: Aortic valve replacement, [address] Marte Coronary artery disease with stent, 2008 Hypertension Dyslipidemia Bilateral cataract CVA, 01/2016 Status post cholecystectomy Anemia REVIEW OF SYSTEMS: CONSTITUTIONAL: Weakness and fatigue. No night sweats. No malaise, lethargy. No fever or chills. HEENT: Eyes: No visual changes. No eye pain. No eye discharge. ENT: No runny nose. No epistaxis. No sinus pain. No sore throat. No odynophagia. No ear pain. No congestion. RESPIRATORY: No cough, no congestion. No hemoptysis. No shortness of breath. CARDIOVASCULAR: Chest wall pain. No exertional chest discomfort. No angina symptoms. No CHF symptoms. No palpitations. No PND. No orthopnea. GASTROINTESTINAL: No abdominal pain. No nausea or vomiting. No diarrhea or constipation. No hematemesis. No hematochezia. GENITOURINARY: No urgency. No frequency. No dysuria. No hematuria. No obstructive symptoms. No discharge. No pain. No significant abnormal bleeding. MUSCULOSKELETAL: No musculoskeletal pain. No joint swelling. No arthritis. NEUROLOGICAL: No headache. No neck pain. No syncope. No seizures. No dizziness. PSYCHIATRIC: Not anxious. No depression. No suicidal thoughts. No homicidal thoughts. SKIN: No rash. No lesions. No wounds. ENDOCRINE: No unexplained weight loss. No weight gain. HEMATOLOGIC/LYMPHATIC: No anemia. No purpura. No petechiae. No prolonged or excessive bleeding. No palpable lymph nodes. PERSONAL/FAMILY/SOCIAL HISTORY: The patient is , lives with the . Nonsmoker. No alcohol abuse. Four children. The patient's parents are . She does all activity of daily living. Intelligent. MEDICATIONS: Vasotec 5 mg p.o. daily Metoprolol 25 mg twice a day Norvasc 2.5 at bedtime Lasix 20 mg p.o. daily Lovastatin 80 mg p.o. at h.s. Prilosec 20 mg p.o. daily [place] 5/500 p.r.n. Calcium supplements ALLERGIES: AMINOPHYLLINE, CODEINE, ALLOPURINOL, SULFA PHYSICAL EXAMINATION: GENERAL: The patient is oriented to time, place and person. VITAL SIGNS: Temperature 98.3, pulse 60, respiratory rate 15, BP 120/50, pulse ox 98%. HEENT: Face is symmetrical. Head normocephalic, atraumatic. Eyes: Extraocular muscles are intact. Sclerae nonicteric. Pupils are equal, round and reactive to light and accommodation. Ears: No lesions. Nose appeared normal. Throat: No exudate or erythema. NECK: Supple. No JVP, no carotid bruit. No lymphadenopathy or thyromegaly. LUNGS: Lungs are clear to auscultation. Percussion note normal. Chest symmetrical. HEART: PMI not palpable. On auscultation S1, S2, no S3. Grade I/ systolic murmur. No cyanosis or clubbing. No ascites. Pulses: Dorsalis pedis and posterior tibial pulses +1 bilaterally. ABDOMEN: Soft. Nontender. No organomegaly. Bowel sounds active. No CVA tenderness. No mass felt. EXTREMITIES: No edema. Full range of motion of all extremities, equal. ENGAGEMENT LIAISON: Mental status normal. Deep tendon reflexes, motor and sensory normal. No headache, no double vision or headache. SKIN: Normal. Intact. Turgor - normal. LYMPHATIC: No palpable lymph nodes/no lymphedema. MUSCULOSKELETAL: Normal joints with no swelling. Muscle tone is normal. EKG done three times in the ER - sinus rhythm, bradycardia. No acute changes. Chest x-ray normal. CT angiogram showed contusion of the chest wall otherwise no acute findings. Creatinine, BUN normal. CBC showed anemia which is chronic. Cardiac markers are negative for any acute myocardial event. ASSESSMENT: 1. CHEST PAIN LIKELY NONCARDIAC, CHEST WALL PAIN FROM CONTUSION. 2. CORONARY ARTERY DISEASE WITH STENT 2008. 3. AORTIC VALVE REPLACEMENT, 2010. 4. CVA, JANUARY 2016. 5. HYPERTENSION. 6. DYSLIPIDEMIA. 7. ANEMIA. 8. REFLUX DISEASE. PLAN: 1. Admit the patient. 2. Routine telemetry orders with serial cardiac markers. 3. Toradol 30 mg IV q.8. 4. Steroids. 5. Reflux treatment. CONDITION: Stable. TIME SPENT: More than 70 minutes. MTDD
--- NOTE | 2017-09-18 14:16 | PN ---
DATE OF SERVICE: 09/16/17 SUBJECTIVE: 77 year old white female hospitalized with chest pain. The patient was about to be discharged but the potassium was reported as 2.8 so the patient has severe hypokalemia. We will give her K-tab 20meq four times a day daily and recheck the Potassium. She is up and about with mild soreness in the chest gannon. REVIEW OF SYSTEMS: CONSTITUTIONAL: No night sweats. No fatigue, malaise, lethargy. No fever or chills. HEENT: Eyes: No visual changes. No eye pain. No eye discharge. ENT: No runny nose. No epistaxis. No sinus pain. No sore throat. No odynophagia. No congestion. RESPIRATORY: No cough, no congestion. No hemoptysis. No shortness of breath. CARDIOVASCULAR: No angina symptoms. No CHF symptoms. No atypical chest pain for CAD. No palpitations. No orthopnea. GASTROINTESTINAL: No abdominal pain. No nausea or vomiting. No diarrhea or constipation. No hematemesis. No hematochezia. GENITOURINARY: No urgency. No frequency. No dysuria. No hematuria. No obstructive symptoms. No discharge. No pain. No significant abnormal bleeding. MUSCULOSKELETAL: No musculoskeletal pain; no joint swelling. NEUROLOGICAL: No headache. No neck pain. No syncope. No seizures. No dizziness. PSYCHIATRIC: Not anxious. No depression. No suicidal thoughts. No homicidal thoughts. SKIN: No rash. No lesions. No wounds. ENDOCRINE: No unexplained weight loss. No weight gain. HEMATOLOGIC/LYMPHATIC: No anemia. No purpura. No petechiae. No prolonged or excessive bleeding. No palpable lymph nodes. PHYSICAL EXAMINATION: GENERAL: The patient is oriented to time, place and person. VITAL SIGNS: Temperature 98, pulse 56, respiratory rate 12, blood pressure 170/ 56 and pulse ox 96%. HEENT: Head normocephalic, atraumatic. Eyes: Extraocular muscles are intact. Pupils are equal, round and reactive to light and accommodation. Ears: No lesions. Nose appeared normal. Throat: No exudate or erythema. NECK: Supple. No JVD, no carotid bruit. No lymphadenopathy or thyromegaly. LUNGS: Decreased breath sounds but clear to auscultation. Percussion note normal. Chest symmetrical. HEART: S1, S2, no S3. No murmurs. No cyanosis or clubbing. No ascites. Pulses: Dorsalis pedis and posterior tibial pulses +1 to +2 both sides. ABDOMEN: Soft. Nontender. Bowel sounds active. No CVA tenderness. No mass felt. EXTREMITIES: No edema. Full range of motion of all extremities, equal. NEUROLOGIC: No focal deficit. Cranial nerves II through XII are grossly intact. No headache, no double vision or headache. SKIN: Not dry. Intact. Turgor - normal. LYMPHATIC: No palpable lymph nodes/no lymphedema. MUSCULOSKELETAL: Normal joints with no swelling. Muscle tone is normal. LABS: Hgb 9.9, hct 30, WBC 7,100 normal differential, potassium 2.8. ASSESSMENT: 1. Chest pain, noncardiac 2. Aortic valve replacement, stable 3. Coronary artery disease with stent, stable 4. Hypokalemia PLAN: 1. Give Potassium supplement 2. Systolic blood pressure is up because the patient says that the has probably early dementia and he was very angry. She doesn't whether he will come and pick her up or not. She is concerned about it. TIME SPENT: More than 30 minutes. Plan and coordination of the patient's care discussed in the presence of nurse. HUE
--- NOTE | 2017-09-18 15:10 | PN ---
DATE OF SERVICE: 09/15/17 SUBJECTIVE: 77 year old white female hospitalized with chest pain. The patient's chest pain seems to be noncardiac but she is feeling a lot better. She is up and about. Still has mild chest soreness from contusion. REVIEW OF SYSTEMS: CONSTITUTIONAL: No night sweats. No fatigue, malaise, lethargy. No fever or chills. HEENT: Eyes: No visual changes. No eye pain. No eye discharge. ENT: No runny nose. No epistaxis. No sinus pain. No sore throat. No odynophagia. No congestion. RESPIRATORY: No cough, no congestion. No hemoptysis. No shortness of breath. CARDIOVASCULAR: No angina symptoms. No CHF symptoms. No atypical chest pain for CAD. No palpitations. No orthopnea. Chest wall soreness with contusion. GASTROINTESTINAL: No abdominal pain. No nausea or vomiting. No diarrhea or constipation. No hematemesis. No hematochezia. Appetite has improved. GENITOURINARY: No urgency. No frequency. No dysuria. No hematuria. No obstructive symptoms. No discharge. No pain. No significant abnormal bleeding. MUSCULOSKELETAL: No musculoskeletal pain; no joint swelling. NEUROLOGICAL: No headache. No neck pain. No syncope. No seizures. No dizziness. PSYCHIATRIC: Not anxious. No depression. No suicidal thoughts. No homicidal thoughts. SKIN: No rash. No lesions. No wounds. ENDOCRINE: No unexplained weight loss. No weight gain. HEMATOLOGIC/LYMPHATIC: No anemia. No purpura. No petechiae. No prolonged or excessive bleeding. No palpable lymph nodes. PHYSICAL EXAMINATION: GENERAL: The patient is oriented to time, place and person. VITAL SIGNS: Temperature 97.8, pulse 56, respiratory rate 14, blood pressure 156/50 and pulse ox 98%. HEENT: Head normocephalic, atraumatic. Eyes: Extraocular muscles are intact. Pupils are equal, round and reactive to light and accommodation. Ears: No lesions. Nose appeared normal. Throat: No exudate or erythema. NECK: Supple. No JVD, no carotid bruit. No lymphadenopathy or thyromegaly. LUNGS: Decreased breath sounds but clear to auscultation. Percussion note normal. Chest symmetrical. HEART: S1, S2, no S3. No murmurs. No cyanosis or clubbing. No ascites. Pulses: Dorsalis pedis and posterior tibial pulses +1 to +2 both sides. ABDOMEN: Soft. Nontender. Bowel sounds active. No CVA tenderness. No mass felt. EXTREMITIES: No edema. Full range of motion of all extremities, equal. NEUROLOGIC: No focal deficit. Cranial nerves II through XII are grossly intact. No headache, no double vision or headache. SKIN: Not dry. Intact. Turgor - normal. LYMPHATIC: No palpable lymph nodes/no lymphedema. MUSCULOSKELETAL: Normal joints with no swelling. Muscle tone is normal. LABS: Hgb 9.4, hct 27, WBC 6,200 normal differential, creatinine 0.6, BUN 18, potassium 3.6. ASSESSMENT: 1. Chest pain seems to be noncardiac 2. Coronary artery disease with stent 3. Aortic valve replacement 4. Generalized osteoarthritis 5. Anemia PLAN: 1. Continue Toradol 2. Steroids 3. Up and about 4. Continue to monitor cardiac rhythm 5. No evidence of acute SC or ischemia 6. The patient's chest pain is noncardiac. CONDITION: Stable. TIME SPENT: More than 30 minutes. Plan and coordination of the patient's care discussed in the presence of nurse. HUE
== END 2017-09-17 12:25 | disposition home or self-care (01) | DRG 313 ==
LOC: ED 11:48 → MEDSURG A 14:42
PROVIDERS: ADMIT Internal Medicine; ATTEND Internal Medicine
DX: R07.89 Other chest pain (principal); S20.219A Contusion of unspecified front wall of thorax, initial encounter; I10 Essential (primary) hypertension; I25.10 Atherosclerotic heart disease of native coronary artery without angina pectoris; D64.9 Anemia, unspecified; E87.6 Hypokalemia; J43.9 Emphysema, unspecified; E78.5 Hyperlipidemia, unspecified; M15.9 Polyosteoarthritis, unspecified; W19.XXXA Unspecified fall, initial encounter; Z95.1 Presence of aortocoronary bypass graft; Z95.2 Presence of prosthetic heart valve; Z79.899 Other long term (current) drug therapy; Z87.891 Personal history of nicotine dependence; Z86.73 Personal history of transient ischemic attack (TIA), and cerebral infarction without residual deficits; Z95.5 Presence of coronary angioplasty implant and graft; Z95.818 Presence of other cardiac implants and grafts; Z90.49 Acquired absence of other specified parts of digestive tract; Y92.009 Unspecified place in unspecified non-institutional (private) residence as the place of occurrence of the external cause
CPT/HCPCS: 36415; 80053; 82550; 82803; 84132; 84484; 85025; 85610; 85730; 93005; 93010; 96374; 96375; 99223; 99232; 99239; 99284

== ENCOUNTER 2017-09-18 11:45 | Observation (INO) | payer OTHER ==
[2017-09-18] MEDS ORDERED: ASPIRIN CHEWABLE PO STA ×2 (12:00→12:12)
[2017-09-18] MEDS ORDERED: ZOFRAN 4 MG/2 ML IVP STA (12:05)
[2017-09-18] MEDS ORDERED: MORPHINE 2 MG/ML SYRINGE IVP STA (12:06)
--- NOTE | 2017-09-18 12:40 | DI ---
EXAM: Chest one view, frontal view only. HISTORY: Chest pain. COMPARISON: 09/13/2017. FINDINGS: Median sternotomy wires are present. Atherosclerotic calcifications noted. Implantable l oop recorder again seen. The heart size is normal. There is no pulmonary vascular congestion. The lungs are clear. No pleural effusion or pneumothorax is seen. No acute osseous abnormality is ident ified. Old fracture of the proximal right humerus again noted. Since the prior study, there has been no significant interval change. IMPRESSION: No acute cardiopulmonary process.
--- NOTE | 2017-09-18 13:12 | ED.PDOC ---
General ED Provider: Dr. 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 ) Mode of Arrival: Wheelchair Information Source: Patient Exam Limitations: No limitations, Other (WAS D/C OR ISSUE FROM HOSPITAL 1 DAY AGO) Primary Care Provider: KAYLAH QUINN Referred to ED by: Other (SEEN BY ANA FOR SAME ISSUE LAST WEEK WORK UP HAD BEEN NEGATIVE ) Nursing and Triage Documentation Reviewed and Agree: Yes (SEEN WITH ANABELLA AT ALL TIMES ) Reviewed sepsis parameters & appropriate labs ordered?: Yes (PMD SAW PT IN E/D ALSO NO INJURY ) System Inflammatory Response Syndrome: Not Applicable Sepsis Protocol: For patient's 13 years and over: Temp is 96.8 and below OR 101 and greater Pulse >90 BPM Resp >20/minute Acutely Altered Mental Status Are patient's symptoms suggestive of a new infection, such as: -Pneumonia -Skin, Soft Tissue -Endocarditis -UTI -Bone, Joint Infection -Implantable Device -Acute Abdominal Infection -Wound Infection -Meningitis -Blood Stream Catheter Infection -Unknown System Inflammatory Response Syndrome: Not Applicable Cardiovascular Complaint Exam - Chest Pain Complaint/Exam Onset: Gradual Duration: 4 HR PAIN ONSET TODAY Symptoms Are: Still present Timing: Constant Length of Chest Pain Episodes: 4 HRS TOOK SLN HAND CARVER X 3 Initial Severity: Moderate Current Severity: Moderate Location: Reports: Midsternal, Left anterior Pain Radiates: Reports: Epigastrium Character: Reports: Aching, Tightness Aggravating: Reports: None Alleviating: Reports: None Associated Signs and Symptoms: Denies: Diaphoresis, Nausea, Vomiting, Fever, Palpitations, Cough, Hemoptysis, Back pain, Abdominal pain, Dizziness, Short of air, Calf pain, Calf swelling Related History: Reports: Similar episode Related Surgical History: Reports: None History of Healthcare-Acquired Pneumonia: Reports: No AMI/ACS Risk Factors: Reports: Hypertension, Dyslipidemia TAD Risk Factors: Reports: Hypertension Pulmonary Embolism Risk Factors: Reports: None Prior Care for this Complaint: No Recent Stress Test: No Recent Echo/LV Function: No JVD Present: No Subcutaneous Emphysema Present: No Diminshed Breath Sounds: No Reproducible Chest Wall Pain: No Bilateral Pulses Present: No Unequal Pulses Noted: No If Risk Factors for AMI/ACS Consider: EKG, Cardiac Enzymes Review of Systems - Review Of Systems Constitutional: Reports: No symptoms Eyes: Reports: No symptoms Ears, Nose, Mouth, Throat: Reports: No symptoms Respiratory: Reports: No symptoms Cardiac: Reports: Chest pain GI: Reports: No symptoms : Reports: No symptoms Musculoskeletal: Reports: No symptoms Skin: Reports: No symptoms Neurological: Reports: No symptoms Endocrine: Reports: No symptoms Hematologic/Lymphatic: Reports: No symptoms All Other Systems: Reviewed and Negative Past Medical History - Past Medical History Previously Healthy: Yes Endocrine: Reports: Dyslipidemia Cardiovascular: Reports: CAD, Hypertension Respiratory: Reports: Asthma Hematological: Reports: None Gastrointestinal: Reports: None Genitourinary: Reports: None Neuro/Psych: Reports: None, 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) Musculoskeletal: Reports: Arthritis Cancer: Reports: None Last Menstrual Period: na - Surgical History General Surgical History: Reports: Stent Placement (cardiac stents, cardiac valve replacement) - Family History Family History: Reports: Unknown - Social History Smoking Status: Former smoker Hx Substance Use: No Alcohol Screening: None - Immunizations Tetanus Shot up to Date: Yes Physical Exam - Physical Exam Appearance: Well-appearing, No pain distress, Well-nourished Eyes: YAMILEX, EOMI, Conjunctiva clear ENT: Ears normal, Nose normal, Oropharynx normal Respiratory: Airway patent, Breath sounds clear, Breath sounds equal, Respirations nonlabored Cardiovascular: RRR, Pulses normal, No rub, No murmur GI/: Soft, Nontender, No masses, Bowel sounds normal, No Organomegaly Musculoskeletal: Normal strength, ROM intact, No edema, No calf tenderness Skin: Warm, Dry, Normal color Neurological: Sensation intact, Motor intact, Reflexes intact, Cranial nerves intact, Alert, Oriented Psychiatric: Affect appropriate, Mood appropriate Interpretation - Radiology Interpretation Radiology Interpretation By: Radiologist Radiology Results: No acute changes - Inventory Specialist Manager Rate: Ha Rhythm: Sinus - EKG Interpretation Rate: Ha Rhythm: Sinus Physician Notification - Case Discussed Physician Notified: PMD Time of Notification: 13:15 (ADMITT OBS) Admit To: Observation Critical Care Note - Critical Care Note Total Time (mins): 0 Course - Course Hematology/Chemistry: 09/18/17 12:25 09/18/17 12:25 Orders, Labs, Meds: Lab Review 09/18/17 09/18/17 09/18/17 12:25 12:25 12:40 WBC 8.27 RBC 3.17 L Hgb 10.0 L Hct 29.9 L MCV 94.3 MCH 31.5 H MCHC 33.4 RDW Coeff of Domo 14.9 H Plt Count 157 Immature Gran % (Auto) 0.8 Neut % (Auto) 56.9 Lymph % (Auto) 30.5 [place] % (Auto) 11.7 H Eos % (Auto) 0.1 Baso % (Auto) 0.0 Immature Gran # (Auto) 0.1 Neut # (Auto) 4.7 Lymph # (Auto) 2.5 [place] # (Auto) 1.0 Eos # (Auto) 0.0 Baso # (Auto) 0.0 Puncture Site Lr O2 Saturation 95.0 ABG pH 7.566 H* ABG pCO2 24.2 L ABG pO2 64.0 L ABG HCO3 22.0 ABG Total CO2 23 ABG Base Excess 0 Sp Test + FiO2 % 21.0 Sodium 140 Potassium 3.3 L Chloride 106 Carbon Dioxide 24 Anion Gap 13.3 BUN 25 H Creatinine 0.81 Estimated GFR (MDRD) 69.00 BUN/Creatinine Ratio 30.86 Glucose 85 Calcium 8.8 Total Bilirubin 0.6 AST 20 ALT 28 Alkaline Phosphatase 49 L Total Creatine Kinase 25 Troponin I 0.0510 Total Protein 5.6 L Albumin 3.5 Globulin 2.1 Albumin/Globulin Ratio 1.67 TSH 3.610 Orders Category Date Time Status ABG DRAW REQUEST Stat CARDIO 09/18/17 11:59 Completed EKG-(ED ONLY) Stat CARDIO 09/18/17 11:59 Completed ED IV/MEDIPORT/POWERPORT .ONCE EMERGENCY 09/18/17 11:59 Active ABG Stat LAB 09/18/17 12:40 Completed CBC W/ AUTO DIFF Stat LAB 09/18/17 12:25 Completed COMPREHENSIVE METABOLIC PANEL Stat LAB 09/18/17 12:25 Completed CREATINE KINASE Stat LAB 09/18/17 12:25 Completed THYROID STIMULATING HORMONE Stat LAB 09/18/17 12:25 Completed TROPONIN I Stat LAB 09/18/17 12:25 Completed 0.9 % Sodium Chloride [Saline Flush] MEDS 09/18/17 11:59 Active 1 syr IVF PRN PRN Aspirin [Aspirin Chewable] MEDS 09/18/17 12:12 Discontinued 243 mg PO ONCE STA Morphine Sulfate [Morphine 2 mg/ml Syringe] MEDS 09/18/17 12:06 Discontinued 2 mg IVP ONCE STA Ondansetron HCl/Pf [Zofran 4 mg/2 ml] MEDS 09/18/17 12:05 Discontinued 4 mg IVP ONCE STA CHEST, 1V AP ONLY Stat RADS 09/18/17 11:[address] ABDOMEN/PELVIS WO CONTRAST Stat RADS 09/18/17 13:05 Completed Medications Generic Name Dose Route Start Last Admin Trade Name Freq PRN Reason Stop Dose Admin Sodium Chloride 1 syr 09/18/17 11:59 09/18/17 12:11 Saline Flush IVF 1 syr PRN PRN Administration To flush IV Discontinued Medications Generic Name Dose Route Start Last Admin Trade Name Freq PRN Reason Stop Dose Admin Aspirin 243 mg 09/18/17 12:12 09/18/17 12:13 Aspirin Chewable PO 09/18/17 12:13 243 mg ONCE STA Administration Morphine Sulfate 2 mg 09/18/17 12:06 09/18/17 12:34 Morphine 2 Mg/Ml Syringe IVP 09/18/17 12:07 2 mg ONCE STA Administration Ondansetron HCl 4 mg 09/18/17 12:05 09/18/17 12:30 Zofran 4 Mg/2 Ml IVP 09/18/17 12:06 4 mg ONCE STA Administration Vital Signs: Temp Pulse Resp BP Pulse Ox 09/18/17 11:52 97.9 F 57 L 18 168/77 H 100 ILENE Risk Score ILENE Risk Score: Risk Score Odds of by 30D 0 0.1 (0.1-0.2) 1 0.3 (0.2-0.3) 2 0.4 (0.3-0.5) 3 0.7 (0.6-0.9) 4 1.2 (1.0-1.5) 5 2.2 (1.9-2.6) 6 3.0 (2.5-3.6) 7 4.8 (3.8-6.1) Departure - Departure Time of Disposition: 14:00 Disposition: PLACED OBSERVATION Discharge Problem: Chest pain Instructions: Angina (ED) Condition: Good Pt referred to PMD for follow-up: Yes IPMP verified?: No Additional Instructions: Please call your Family Physician as soon as possible to schedule a follow-up appointment. Allergies/Adverse Reactions: Allergies aminophylline Adverse Reaction (Verified 09/18/17 12:09) codeine Adverse Reaction (Verified 09/18/17 12:09) haloperidol [From Haldol] Adverse Reaction (Verified 09/18/17 12:09) Sulfa (Sulfonamide Antibiotics) Adverse Reaction (Verified 09/18/17 12:09) Home Medications: Ambulatory Orders Amlodipine Besylate [Norvasc] 2.5 mg PO BEDTIME 09/13/17 Aspirin 81 mg PO DAILY 09/13/17 Calcium Carbonate/Vitamin D3 [Calcium 1,000 + D3 Caplet] 1 each PO DAILY Enalapril Maleate [Vasotec] 5 mg PO DAILY 09/13/17 Furosemide [Lasix] 20 mg PO DAILY 09/13/17 Hydrocodone Bit/Acetaminophen [Lortab 5-500] 1 tab PO Q4-6H PRN 09/13/17 Lovastatin 80 mg PO BEDTIME 09/13/17 Metoprolol Tartrate [Lopressor] 25 mg PO BID 09/13/17 Montelukast Sodium [Singulair] 10 mg PO BEDTIME 09/13/17 Omeprazole [Prilosec] 20 mg PO QDAC 09/13/17 Potassium Chloride [K-Tab ER] 10 meq PO DAILY #30 tablet.er 09/17/17 Prednisone 10 mg PO DAILY 09/18/17 Disposition Discussed With: Patient, Family
--- NOTE | 2017-09-18 14:10 | CT ---
EXAM: CT Abdomen without contrast. CT Pelvis without contrast. HISTORY: Upper abdominal pain. COMPARISON: None available. TECHNIQUE: Multiple axial images of the abdomen and pelvis were obtained without intravenous contras t. Images were reformatted in the coronal plane. FINDINGS: Please note that evaluation of the abdominal and pelvic structures is limited due to lack of intravenous contrast. There has been previous sternotomy. Lung bases are clear. Degenerative changes present throughout the spine. Gallbladder is absent. The liver, pancreas, spleen, adrenal glands demonstrate normal contour. Exop hytic low-density left renal cortical lesion measures 4.4 x 2.9 cm on axial image 53 with a similar a ppearing 1.3 cm lesion just below this. No calcified renal stones or hydronephrosis detected. Bladd er is unremarkable. Uterus demonstrates normal contour. Colonic diverticulosis noted. There is no evidence for bowel obstruction or acute inflammation. Kamaljit endix not seen. No free fluid or free air identified. Atherosclerotic calcifications noted IMPRESSION: 1. No acute abnormality within the abdomen or pelvis. 2. Probable left renal cysts. Consider follow-up ultrasound for further characterization. 3. Diverticulosis.
[2017-09-18] MEDS ORDERED: NON-FORMULARY MEDICATION (Hydrocodone Bit/Acetaminophen 1 TAB) PO PRN (14:43)
[2017-09-18] MEDS ORDERED: PREDNISONE PO SCH (15:00)
[2017-09-18] MEDS ORDERED: NORCO 5-325 PO PRN (15:05)
[2017-09-18 15:46] VITALS: BMI 23.4
[2017-09-18] MEDS: SODIUM CHLORIDE 1,000 ML IV SCH (16:09)
[2017-09-18] MEDS: LOPRESSOR PO SCH (17:17)
[2017-09-18] MEDS: NORCO 5-325 PO PRN (20:52)
[2017-09-18] MEDS ORDERED: NON-FORMULARY MEDICATION (Lovastatin [Lovastatin] 80 MG) PO SCH (21:00)
[2017-09-18] MEDS ORDERED: MEVACOR PO SCH (21:00)
[2017-09-18] MEDS ORDERED: NON-FORMULARY MEDICATION (Amlodipine Besylate [Norvasc] 2.5 MG) PO SCH (21:00)
[2017-09-18] MEDS ORDERED: NORVASC PO SCH (21:00)
[2017-09-19] MEDS: NORCO 5-325 PO PRN (05:52)
[2017-09-19] MEDS ORDERED: LASIX TAB PO SCH (06:30)
[2017-09-19] MEDS ORDERED: PREDNISONE PO SCH (08:00)
[2017-09-19] MEDS ORDERED: ASPIRIN CHEWABLE PO SCH (08:00)
[2017-09-19] MEDS ORDERED: NON-FORMULARY MEDICATION (Potassium Chloride [K-Tab Er] 10 MEQ) PO SCH (09:00)
[2017-09-19] MEDS ORDERED: MICRO-K CAP PO SCH (09:00)
[2017-09-19] MEDS ORDERED: VASOTEC PO SCH (09:00)
[2017-09-19] MEDS: FLAGYL PO SCH ×3 (10:02→21:07)
[2017-09-19] MEDS: CARAFATE PO SCH ×3 (10:02→21:06)
[2017-09-19] MEDS: PROTONIX PO SCH ×2 (10:03→17:14)
[2017-09-19] MEDS ORDERED: NORCO 5-325 PO PRN (11:00)
[2017-09-19] MEDS ORDERED: CARAFATE PO SCH (11:00)
--- NOTE | 2017-09-19 11:16 | PCM.PROG ---
Attending Provider: ATTENDING PROVIDER: Dr. KAYLAH QUINN DATE OF SERVICE: 09/19/17 SUBJECTIVE: This 77 year old WHITE/ F was hospitalized 09/18/17 with chest pain. The patient had workup for chest pain in three different hospitals in the past 3 to 4 weeks, will obtain records from [facility]. She is feeling a lot better, is up and about with no chest discomfort or pain. Cardiac workup, cardiac markers all negative for ischemia or cardiovascular event. REVIEW OF SYSTEMS: CONSTITUTIONAL: No night sweats. No fatigue, malaise, lethargy. No fever or chills. HEENT: Eyes: No visual changes. No eye pain. No eye discharge. ENT: No runny nose. No epistaxis. No sinus pain. No odynophagia. No congestion. RESPIRATORY: No cough, no congestion. No hemoptysis. No shortness of breath. CARDIOVASCULAR: No angina symptoms. No CHF symptoms. No atypical chest pain for CAD. No palpitations. No orthopnea.. GASTROINTESTINAL: No abdominal pain. No nausea or vomiting. No diarrhea or constipation. No hematemesis. No hematochezia. GENITOURINARY: No urgency. No frequency. No dysuria. No hematuria. No obstructive symptoms. No discharge. No pain. No significant abnormal bleeding. MUSCULOSKELETAL: No musculoskeletal pain; no joint swelling. NEUROLOGICAL: Awake, alert, oriented to time, place and person. No headache. No neck pain. No syncope. No seizures. No dizziness. PSYCHIATRIC: Not anxious. No depression. No suicidal thoughts. No homicidal thoughts. SKIN: No rash. No lesions. No wounds. ENDOCRINE: No unexplained weight loss. No weight gain. HEMATOLOGIC/LYMPHATIC: No anemia. No purpura. No petechiae. No prolonged or excessive bleeding. No palpable lymph nodes. PHYSICAL EXAMINATION: GENERAL: The patient is awake, alert and oriented, sitting in bed in no distress. VITAL SIGNS: Temperature 97.8 F, Pulse 57, Respiratory Rate 16, BP 118/52, Pulse Ox 97% HEENT: Head normocephalic, atraumatic. Eyes: Extraocular muscles are intact. Pupils are equal, round and reactive to light and accommodation. Ears: No lesions. Nose appeared normal. Throat: No exudate or erythema. NECK: Supple. No JVD, no carotid bruit. No lymphadenopathy or thyromegaly. LUNGS: Clear to auscultation. Percussion note normal. Chest symmetrical. HEART: S1, S2, no S3. No murmurs. No cyanosis or clubbing. No ascites. Pulses: Dorsalis pedis and posterior tibial pulses +1 to +2 both sides. ABDOMEN: Soft. Non-tender. Bowel sounds active. No CVA tenderness. No mass felt. EXTREMITIES: No edema. Full range of motion of all extremities, equal. NEUROLOGIC: No focal deficit. Cranial nerves II through XII are grossly intact. No headache, no double vision or headache. SKIN: Warm and dry. Intact. Turgor-normal. LYMPHATIC: No palpable lymph nodes/no lymphedema. MUSCULOSKELETAL: Normal joints with no swelling. Muscle tone is normal. LAB REVIEW: 09/19/17 05:00 09/19/17 05:00 09/19/17 05:00: Sodium 143, Potassium 5.1, Chloride 109 H, Carbon Dioxide 27, Anion Gap 12.1, BUN 27 H, Creatinine 0.76, Estimated GFR (MDRD) 74.00, BUN/ Creatinine Ratio 35.52, Glucose 85, Calcium 8.1 L, Total Bilirubin 0.4, AST 20, ALT 25, Alkaline Phosphatase 51 L, Total Protein 4.8 L, Albumin 3.0 L, Globulin 1.8, Albumin/Globulin Ratio 1.67 09/19/17 05:00: WBC 7.61, RBC 3.43 L, Hgb 10.7 L, Hct 33.2 L, MCV 96.8, MCH 31.2 H, MCHC 32.2, RDW Coeff of Domo 15.2 H, Plt Count 163, Immature Gran % (Auto ) 1.2, Neut % (Auto) 40.4, Lymph % (Auto) 46.4, [place] % (Auto) 9.5, Eos % (Auto) 2.2, Baso % (Auto) 0.3, Immature Gran # (Auto) 0.1, Neut # (Auto) 3.1, Lymph # ( Auto) 3.5 H, [place] # (Auto) 0.7, Eos # (Auto) 0.2, Baso # (Auto) 0.0 09/19/17 05:00: Total Creatine Kinase 16, Troponin I 0.0540 09/18/17 21:04: Total Creatine Kinase 23, Troponin I 0.0650 ASSESSMENT: Please see below. 1. CHEST PAIN SEEMS NONCARDIAC 2. EPIGASTRIC PAIN COULD BE PEPTIC ULCER DISEASE WITH ESOPHAGEAL SPASM PLAN: 1. Flagyl 250 mg t.i.d. 2. Protonix and Carafate 3. Amoxil 500 mg t.i.d. 4. Will empirically treat for H. Pylori and peptic ulcer disease 5. Will obtain reports from [facility] [place] Plan and coordination of the patient's care discussed in the presence of Mechanical Fitter and nurse. CONDITION: Stable SCRIBED BY: MELANIE DAILEY Transmission Builder scribed while in presence of service performed by Dr. KAYLAH QUINN on 09/19/17 ([id number])
[2017-09-19] MEDS: VASOTEC PO SCH (11:19)
[2017-09-19] MEDS: PREDNISONE PO SCH (11:19)
[2017-09-19] MEDS: LOPRESSOR PO SCH ×3 (11:19→17:15)
[2017-09-19] MEDS: ASPIRIN CHEWABLE PO SCH (11:19)
[2017-09-19] MEDS: MICRO-K CAP PO SCH (11:19)
[2017-09-19] MEDS: SODIUM CHLORIDE 1,000 ML IV SCH (12:44)
[2017-09-19] MEDS: AMOXIL PO SCH ×2 (14:05→21:07)
[2017-09-19] MEDS ORDERED: MEVACOR PO SCH (21:00)
[2017-09-19] MEDS ORDERED: NORVASC PO SCH (21:00)
[2017-09-20 05:08] VITALS: TEMP 98.5
[2017-09-20] MEDS: FLAGYL PO SCH (05:40)
[2017-09-20] MEDS: CARAFATE PO SCH ×2 (05:40→11:45)
[2017-09-20] MEDS: PROTONIX PO SCH (05:41)
[2017-09-20] MEDS: AMOXIL PO SCH (05:41)
[2017-09-20] MEDS ORDERED: LASIX TAB PO SCH (06:30)
[2017-09-20] MEDS: ASPIRIN CHEWABLE PO SCH (08:15)
[2017-09-20] MEDS: MICRO-K CAP PO SCH (08:15)
[2017-09-20] MEDS: PREDNISONE PO SCH (08:16)
[2017-09-20] MEDS: LOPRESSOR PO SCH (08:16)
[2017-09-20] MEDS: VASOTEC PO SCH (08:16)
[2017-09-20] MEDS ORDERED: XANAX PO STA (09:37)
--- NOTE | 2017-09-20 10:52 | PN ---
DATE OF SERVICE: 09/18/17 SUBJECTIVE: The patient was seen in the emergency room as she came with the same type of chest pain, substernal across the chest and also some epigastric tenderness with pain; all seem to be related. The patient's EKG showed the same sinus rhythm with ST wave changes consistent with digoxin effect or nonspecific bradycardia was noted as usual. All the cardiac markers are negative. The patient's pain onset was in the morning of hospitalization, steady ache with no shortness of breath or sweating. The patient was in the hospital for four days with the entire workup and monitoring being negative. The patient also had the same type of workup at one of the [facility] and [facility] [place]. I explained to the patient and that we exhausted whatever we could do at [place] and she should be transferred to [facility] for further evaluation, maybe cardiac catheterization, repeat if it was not done at [place], [place] two weeks ago. The emergency room attending, Dr. Noland called [facility] ER. The patient was not taken as patient had a lot of cardiac workup in the past 3 to 4 weeks. PHYSICAL EXAMINATION: GENERAL: The patient is oriented to time, place and person. HEENT: Head normocephalic, atraumatic. Eyes: Extraocular muscles are intact. Pupils are equal, round and reactive to light and accommodation. Ears: No lesions. Nose appeared normal. Throat: No exudate or erythema. NECK: Supple. No JVP, no carotid bruit. No lymphadenopathy or thyromegaly. LUNGS: Clear to auscultation. Percussion note normal. Chest symmetrical. HEART: S1, S2, no S3. No murmurs. No cyanosis or clubbing. No ascites. Pulses: Dorsalis pedis and posterior tibial pulses +1 to +2 both sides. ABDOMEN: Soft. Nontender. Bowel sounds active. No CVA tenderness. No mass felt. EXTREMITIES: No edema. Full range of motion of all extremities, equal. NEUROLOGIC: No focal deficit. Cranial nerves II through XII are grossly intact. No headache, no double vision or headache. SKIN: Not dry. Intact. Turgor - normal. LYMPHATIC: No palpable lymph nodes/no lymphedema. MUSCULOSKELETAL: Normal joints with no swelling. Muscle tone is normal. LABS: EKG sinus bradycardia, no acute changes, unchanged from the previous EKGs done on previous hospitalization and just past 3 to 4 days ago. ASSESSMENT: 1. CHEST PAIN SEEMS TO BE NONCARDIAC WITH SOME EPIGASTRIC DISTRESS AND PAIN. 2. HISTORY OF CORONARY ARTERY DISEASE WITH STENTING 2008. 3. HISTORY OF AORTIC VALVE REPLACEMENT [address] BOYCE. The patient underwent chest x-ray which was normal. All the cardiac markers negative. All the labs negative including CBC and CMP. The patient had CT scan of the abdomen and pelvis which is negative. PLAN: 1. Admit patient to observation with telemetry. 2. Continue all the home medications. CONDITION: Stable. TIME SPENT: More than 30 minutes. Plan and coordination of the patient's care discussed in the presence of nurse. HUE
[2017-09-20 11:03] VITALS: BP 154/58
--- NOTE | 2017-09-24 13:32 | DS ---
DATE OF SERVICE: 09/20/17 - DISCHARGE NOTE/DISCHARGE SUMMARY FINAL DIAGNOSIS: 1. CHEST PAIN NONCARDIAC 2. STATUS POST AORTIC VALVE REPLACEMENT 3. HISTORY OF CORONARY ARTERY DISEASE WITH STENT, WHICH IS QUESTIONABLE 4. ANEMIA 5. HYPERTENSION 6. GENERALIZED OSTEOARTHRITIS 7. REFLUX DISEASE DISCHARGE INSTRUCTIONS: Followup appointment is scheduled with Dr. Umaña on September 25, 2017 at 11:15 a.m. MEDICATIONS AT DISCHARGE: Amlodipine 2.5 mg at night Aspirin 81 mg p.o. daily Vasotec 5 mg p.o. daily Lasix 20 mg p.o. daily Lortab 5/500 q.6 Lovastatin 80 mg p.o. daily Metoprolol 25 mg twice a day Singulair 10 mg p.o. daily Prilosec 20 mg p.o. daily K-tab 10 mEq p.o. daily Amoxil 250 mg twice a day for 7 days Flagyl 250 mg twice a day for 7 days Omeprazole to be 20 mg twice a day NEW PRESCRIPTIONS: Xanax 0.25 mg take one daily as needed (for anxiety) may cause drowsiness Flagyl 250 mg take one twice a day for 7 days (antibiotic for treatment of epigastric pain) Amoxicillin 250 mg take one twice a day for 7 days (antibiotic treatment of epigastric pain) Increase Prilosec to twice daily DIET INSTRUCTIONS: Regular ACTIVITY: Resume as tolerated. No heavy lifting, pushing, pulling until seen by Dr. Umaña next week. SMOKING: Former smoker - Quit in 1992 DISEASE SPECIFIC EDUCATION: Diagnosis Medications Followup appointment Diet Activity HOSPITAL COURSE: 77-year-old white female hospitalized with chest pain. The patient had been in the hospital three times in three different hospitals in the past one month. The patient also had coronary angiogram which we got from report from [facility] which revealed practically normal coronary arteries except for some irregular plaquing in obtuse marginal artery. She had moderate to severe aortic regurg. The patient had normal CT angiogram five days ago. The patient's cardiac status with cardiac markers, EKGs were unremarkable, unchanged. The patient was up and about. Chest pain seems to be chest wall pain. She was reassured about it. She has some issues with the . There has been some anxiety related to it. The patient's condition at time of discharge, stable. Cardiovascular status stable. LABS: Creatinine 0.7, BUN 18, potassium 4.1, glucose 86, hemoglobin 11.9, hematocrit 36, WBC 8,700, normal differential. TIME SPENT: More than 60 minutes. MTDD
--- NOTE | 2017-09-24 13:34 | PN ---
CODING FOR BILLING 09/18/17 OBSERVATION/LEVEL 5 09/19/17 INTERMEDIATE 09/20/17 DISCHARGE MTDD
--- NOTE | 2017-09-30 10:00 | HP ---
DATE OF SERVICE: 09/18/17 HISTORY OF PRESENT ILLNESS: The patient was seen in the emergency room as she came with the same type of chest pain, substernal across the chest and also some epigastric tenderness with pain; all seem to be related. The patient's EKG showed the same sinus rhythm with ST wave changes consistent with digoxin effect or nonspecific bradycardia was noted as usual. All the cardiac markers are negative. The patient's pain onset was in the morning of hospitalization, steady ache with no shortness of breath or sweating. The patient was in the hospital for four days with the entire workup and monitoring being negative. The patient also had the same type of workup at one of the [facility] and [facility] at [place], [place]. I explained to the patient and that we exhausted whatever we could do at [place] and she should be transferred to [facility] for further evaluation, maybe cardiac catheterization, repeat if it was not done at [place], [place] two weeks ago. PAST MEDICAL HISTORY: Generalized osteoarthritis Anemia CAD with stent placement Aortic valve replacement Hypertension Reflux disease Asthma, allergy induced PAST SURGICAL HISTORY: Cataract removal, bilaterally Heart valve replacement Cholecystectomy REVIEW OF SYSTEMS: CONSTITUTIONAL: No night sweats. No fatigue, malaise, lethargy. No fever or chills. HEENT: Eyes: No visual changes. No eye pain. No eye discharge. ENT: No runny nose. No epistaxis. No sinus pain. No sore throat. No odynophagia. No ear pain. No congestion. RESPIRATORY: No cough, no congestion. No hemoptysis. No shortness of breath. CARDIOVASCULAR: No angina symptoms. No CHF symptoms. No atypical chest pain for CAD. No palpitations. No orthopnea. GASTROINTESTINAL: No abdominal pain. No nausea or vomiting. No diarrhea or constipation. No hematemesis. No hematochezia. GENITOURINARY: No urgency. No frequency. No dysuria. No hematuria. No obstructive symptoms. No discharge. No pain. No significant abnormal bleeding. MUSCULOSKELETAL: No musculoskeletal pain. No joint swelling. No arthritis. NEUROLOGICAL: No headache. No neck pain. No syncope. No seizures. No dizziness. PSYCHIATRIC: Not anxious. No depression. No suicidal thoughts. No homicidal thoughts. SKIN: No rash. No lesions. No wounds. ENDOCRINE: No unexplained weight loss. No weight gain. HEMATOLOGIC/LYMPHATIC: No anemia. No purpura. No petechiae. No prolonged or excessive bleeding. No palpable lymph nodes. PERSONAL/FAMILY/SOCIAL HISTORY: No alcohol use. Former smoker (quit in 1992). No substance use. Family history of CHF, throat cancer. MEDICATIONS: (Home) Calcium one each p.o. daily Singulair 10 mg p.o. bedtime Lovastatin 80 mg p.o. bedtime Aspirin 81 mg p.o. daily Norvasc 2.5 mg p.o. bedtime Lopressor 25 mg p.o. b.i.d. Vasotec 5 mg p.o. daily Hydrocodone Bit/Acetaminophen one tab p.o. q.4-6H p.r.n. Furosemide (Lasix) 20 mg p.o. daily K-TAB ER 10 mEq p.o. daily Prednisone 10 mg p.o. daily ALLERGIES: AMINOPHYLLINE, CODEINE, HALOPERIDOL, SULFA PHYSICAL EXAMINATION: VITAL SIGNS: Temperature 97.9, pulse 57, BP 168/77, respiratory rate 18, 02 sat 100% on room air. BMI 23.4 HEENT: Head normocephalic, atraumatic. Eyes: Extraocular muscles are intact. Pupils are equal, round and reactive to light and accommodation. Ears: No lesions. Nose appeared normal. Throat: No exudate or erythema. NECK: Supple. No JVD, no carotid bruit. No lymphadenopathy or thyromegaly. LUNGS: Clear to auscultation. Percussion note normal. Chest symmetrical. HEART: S1, S2, no S3. No murmurs. No cyanosis or clubbing. No ascites. Pulses: Dorsalis pedis and posterior tibial pulses +1 to +2 both sides. ABDOMEN: Soft. Nontender. Bowel sounds active. No CVA tenderness. No mass felt. EXTREMITIES: No edema. Full range of motion of all extremities, equal. NEUROLOGIC: No focal deficit. Cranial nerves II through XII are grossly intact. No headache, no double vision or headache. SKIN: Not dry. Intact. Turgor - normal. LYMPHATIC: No palpable lymph nodes/no lymphedema. MUSCULOSKELETAL: Normal joints with no swelling. Muscle tone is normal. LABS/X-RAYS: WBC 8.27, RBC 3.17, Hgb 10.0, Hct 29.9, platelet count 157. Chemistries: Sodium 140, potassium 3.3, chloride 106, carbon dioxide 24, BUN 25, creatinine 0.81, BUN/Creatinine 30.86, glucose 85, calcium 8.8, AST 20, ALT 28, alkaline phosphatase 49, troponin 0.0510, total protein 5.6, albumin 3.5, globulin 2.1, TSH 3.610. The patient underwent chest x-ray which was normal. All the cardiac markers negative. All the labs negative including CBC and CMP. The patient had CT scan of the abdomen and pelvis which is negative. ASSESSMENT: 1. CHEST PAIN SEEMS TO BE NONCARDIAC WITH SOME EPIGASTRIC DISTRESS AND PAIN. 2. HISTORY OF CORONARY ARTERY DISEASE WITH STENTING 2008. 3. HISTORY OF AORTIC VALVE REPLACEMENT [address] BOYCE. PLAN: 1. Admit patient to observation with telemetry. 2. Continue all the home medications. CONDITION: Stable TIME SPENT: More than 70 minutes. HUE
== END 2017-09-20 13:17 | disposition home or self-care (01) ==
LOC: ED 11:45 → MEDSURG A 14:58
PROVIDERS: ADMIT Internal Medicine; ATTEND Internal Medicine
DX: R07.89 Other chest pain (principal); R10.13 Epigastric pain; I10 Essential (primary) hypertension; I25.10 Atherosclerotic heart disease of native coronary artery without angina pectoris; R00.1 Bradycardia, unspecified; K21.9 Gastro-esophageal reflux disease without esophagitis; D64.9 Anemia, unspecified; M15.9 Polyosteoarthritis, unspecified; F41.9 Anxiety disorder, unspecified; Z95.2 Presence of prosthetic heart valve; Z95.5 Presence of coronary angioplasty implant and graft; Z86.73 Personal history of transient ischemic attack (TIA), and cerebral infarction without residual deficits; Z87.891 Personal history of nicotine dependence; Z79.899 Other long term (current) drug therapy; Z63.0 Problems in relationship with spouse or partner
CPT/HCPCS: 36415; 80053; 82550; 82803; 84443; 84484; 85025; 86677; 87081; 93005; 93010; 96361; 96374; 96375; 99217; 99220; 99225; 99284

== ENCOUNTER 2017-09-28 17:47 | Emergency (ER) ==
[2017-09-28 17:55] VITALS: TEMP 97.6; BMI 23.8
--- NOTE | 2017-09-28 18:04 | ED.PDOC ---
General Stated Complaint: PATIENT BECAME VERY EMOTIONAL AND UPSET WHILE VISITING HER IN THE HOSPTAL HERE AT [facility]. COMPLAINING OF CHEST PAIN AND DYSPNEA. BROUGHT TO ER FOR EVALUATION. PATIENT WAS APPARENTLY EATTING DINNER WITH HER AND SUDDENLY BECAME EMOTIOALLY UPSET, CHEST PAIN. VS CHECKED AND BP EXTREMELY ELEVATED TO SHE WAS BROUGHT TO THE ER. DAUGHTER PRESENT AT BEDSIDE AND STATES SHE HAS BEEN HOSPITALIZED 5 TIMES WITH OUT DIAGNOSTIC FINDINGS Time Seen by Physician: 19:35 Mode of Arrival: Wheelchair Information Source: Patient Nursing and Triage Documentation Reviewed and Agree: Yes Reviewed sepsis parameters & appropriate labs ordered?: Yes System Inflammatory Response Syndrome: Not Applicable System Inflammatory Response Syndrome: Not Applicable <CHINTAN STINSON - Last Filed: 09/28/17 19:27> <JOSE ANTONIO DAVIS - Last Filed: 09/28/17 19:52> ED Provider: Dr. JOSE ANTONIO DAVIS Chief Complaint: Chest Pain Primary Care Provider: KAYLAH QUINN Sepsis Protocol: For patient's 13 years and over: Temp is 96.8 and below OR 101 and greater Pulse >90 BPM Resp >20/minute Acutely Altered Mental Status Are patient's symptoms suggestive of a new infection, such as: -Pneumonia -Skin, Soft Tissue -Endocarditis -UTI -Bone, Joint Infection -Implantable Device -Acute Abdominal Infection -Wound Infection -Meningitis -Blood Stream Catheter Infection -Unknown Review of Systems - Review Of Systems Constitutional: Reports: Weakness Eyes: Reports: No symptoms Ears, Nose, Mouth, Throat: Reports: No symptoms Respiratory: Reports: No symptoms Cardiac: Reports: Chest pain GI: Reports: No symptoms. Denies: Abdomen distended, Abdominal pain, Nausea, Vomiting : Reports: No symptoms Musculoskeletal: Reports: No symptoms Skin: Reports: No symptoms Neurological: Reports: Anxiety Endocrine: Reports: No symptoms Hematologic/Lymphatic: Reports: No symptoms All Other Systems: Reviewed and Negative <CHINTAN STINSON - Last Filed: 09/28/17 19:27> Past Medical History - Past Medical History Previously Healthy: Yes Endocrine: Reports: Dyslipidemia Cardiovascular: Reports: CAD, Hypertension Respiratory: Reports: Asthma Hematological: Reports: None Gastrointestinal: Reports: None Genitourinary: Reports: None Neuro/Psych: Reports: None, 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) Musculoskeletal: Reports: Arthritis Cancer: Reports: None Last Menstrual Period: menopause - Surgical History General Surgical History: Reports: Stent Placement (cardiac stents, cardiac valve replacement) - Family History Family History: Reports: Unknown - Social History Smoking Status: Former smoker Hx Substance Use: No Alcohol Screening: None <CHINTAN STINSON - Last Filed: 09/28/17 19:27> Physical Exam - Physical Exam Appearance: Ill-appearing, Thin Ill-appearing: Mild Pain Distress: Moderate Eyes: YAMILEX, EOMI, Conjunctiva clear ENT: Ears normal, Nose normal, Oropharynx normal Neck: Supple Respiratory: Airway patent, Breath sounds clear, Breath sounds equal Cardiovascular: RRR, Pulses normal, No rub, No murmur (CHEST WALL TENDER TO PALPATION ) GI/: Soft, Nontender Musculoskeletal: Normal strength, ROM intact Skin: Warm, Dry, Normal color Neurological: Sensation intact, Motor intact, Alert, Oriented Psychiatric: Affect appropriate, Mood appropriate <CHINTAN STINSON - Last Filed: 09/28/17 19:27> Re-Evaluation - Re-Evaluation Time of Re-Evaluation: 19:48 Status: Improved <JOSE ANTONIO DAVIS - Last Filed: 09/28/17 19:52> Physician Notification - Case Discussed Physician Notified: DR DAVIS Time of Notification: 19:10 (TRANSFERRING CARE-AGREES) <CHINTAN STINSON - Last Filed: 09/28/17 19:27> Critical Care Note - Critical Care Note Total Time (mins): 30 <CHINTAN STINSON - Last Filed: 09/28/17 19:27> Course - Course Hematology/Chemistry: 09/28/17 18:15 09/28/17 18:15 <CHINTAN STINSON - Last Filed: 09/28/17 19:27> - Course Hematology/Chemistry: 09/28/17 18:15 09/28/17 18:15 <JOSE ANTONIO DAVIS - Last Filed: 09/28/17 19:52> - Course Orders, Labs, Meds: Lab Review 09/28/17 09/28/17 09/28/17 18:15 18:15 18:15 WBC 6.97 RBC 3.32 L Hgb 10.5 L Hct 31.3 L MCV 94.3 MCH 31.6 H MCHC 33.5 RDW Coeff of Domo 14.2 Plt Count 149 Immature Gran % (Auto) 0.4 Neut % (Auto) 56.7 Lymph % (Auto) 32.7 Morton % (Auto) 8.5 Eos % (Auto) 1.6 Baso % (Auto) 0.1 Immature Gran # (Auto) 0.0 Neut # (Auto) 4.0 Lymph # (Auto) 2.3 Morton # (Auto) 0.6 Eos # (Auto) 0.1 Baso # (Auto) 0.0 Sodium 143 Potassium 3.5 Chloride 110 H Carbon Dioxide 21 L Anion Gap 15.5 BUN 11 Creatinine 0.80 Estimated GFR (MDRD) 70.00 BUN/Creatinine Ratio 13.75 Glucose 98 Calcium 9.3 Total Bilirubin 0.6 AST 24 ALT 19 Alkaline Phosphatase 57 Total Creatine Kinase 34 Troponin I 0.0840 B-Natriuretic Peptide 152 H Total Protein 6.2 Albumin 3.9 Globulin 2.3 Albumin/Globulin Ratio 1.70 Urine Color Urine Clarity Urine pH Ur Specific Pinckard Urine Protein Urine Glucose (UA) Urine Ketones Urine Blood Urine Nitrite Urine Bilirubin Urine Urobilinogen Ur Leukocyte Esterase 09/28/17 19:13 WBC RBC Hgb Hct MCV MCH MCHC RDW Coeff of Domo Plt Count Immature Gran % (Auto) Neut % (Auto) Lymph % (Auto) Morton % (Auto) Eos % (Auto) Baso % (Auto) Immature Gran # (Auto) Neut # (Auto) Lymph # (Auto) Morton # (Auto) Eos # (Auto) Baso # (Auto) Sodium Potassium Chloride Carbon Dioxide Anion Gap BUN Creatinine Estimated GFR (MDRD) BUN/Creatinine Ratio Glucose Calcium Total Bilirubin AST ALT Alkaline Phosphatase Total Creatine Kinase Troponin I B-Natriuretic Peptide Total Protein Albumin Globulin Albumin/Globulin Ratio Urine Color Yellow Urine Clarity Clear Urine pH 8.5 Ur Specific Pinckard 1.015 Urine Protein Negative Urine Glucose (UA) Negative Urine Ketones Negative Urine Blood Negative Urine Nitrite Negative Urine Bilirubin Negative Urine Urobilinogen 0.2 Ur Leukocyte Esterase Negative Orders Category Date Time Status EKG-(ED ONLY) Stat CARDIO 09/28/17 18:05 Completed IV [ED IV/MEDIPORT/POWERPORT] .ONCE EMERGENCY 09/28/17 18:04 Active BNP [B-TYPE NATRIURETIC PEPTIDE] Stat LAB 09/28/17 18:15 Completed CBC W/ AUTO DIFF Stat LAB 09/28/17 18:15 Completed CMP [COMPREHENSIVE METABOLIC PANEL] Stat LAB 09/28/17 18:15 Completed CPK [CREATINE KINASE] Stat LAB 09/28/17 18:15 Completed TROPONIN I Stat LAB 09/28/17 18:15 Completed UA [URINALYSIS C & S IF INDICATED] Stat LAB 09/28/17 19:13 Completed 0.9 % Sodium Chloride [Saline Flush] MEDS 09/28/17 18:05 Ordered 1 syr IVF PRN PRN Clonidine HCl [Catapres] MEDS 09/28/17 19:09 Discontinued 0.1 mg PO ONCE STA Lorazepam Inj [Ativan] MEDS 09/28/17 18:56 Discontinued 0.5 mg IVP ONCE STA CHEST, 1V AP ONLY Stat RADS 09/28/17 18:05 Taken Medications Generic Name Dose Route Start Last Admin Trade Name Freq PRN Reason Stop Dose Admin Sodium Chloride 1 syr 09/28/17 18:05 Saline Flush IVF PRN PRN To flush IV Discontinued Medications Generic Name Dose Route Start Last Admin Trade Name Freq PRN Reason Stop Dose Admin Clonidine 0.1 mg 09/28/17 19:09 09/28/17 19:18 Catapres PO 09/28/17 19:10 0.1 mg ONCE STA Administration Lorazepam 0.5 mg 09/28/17 18:56 09/28/17 19:09 Ativan IVP 09/28/17 18:57 0.5 mg ONCE STA Administration Vital Signs: Temp Pulse Resp BP Pulse Ox 09/28/17 19:48 68 13 156/45 H 97 09/28/17 17:49 97.6 F 77 24 243/76 H 100 ILENE Risk Score: Risk Score Odds of by 30D 0 0.1 (0.1-0.2) 1 0.3 (0.2-0.3) 2 0.4 (0.3-0.5) 3 0.7 (0.6-0.9) 4 1.2 (1.0-1.5) 5 2.2 (1.9-2.6) 6 3.0 (2.5-3.6) 7 4.8 (3.8-6.1) Departure <CHINTAN STINSON - Last Filed: 09/28/17 19:27> - Departure Time of Disposition: 19:48 Pt referred to PMD for follow-up: Yes IPMP verified?: No Disposition Discussed With: Patient, Family <JOSE ANTONIO DAVIS - Last Filed: 09/28/17 19:52> - Departure Disposition: HOME SELF-CARE Discharge Problem: Anxiety, Anterior chest wall pain, Hypertension, uncontrolled Instructions: Hypertension (ED) Condition: Stable Additional Instructions: Keep checking BP Please take 2 tablets of vasotec 5 mg daily F/u PMD Allergies/Adverse Reactions: Allergies aminophylline Adverse Reaction (Verified 09/28/17 17:57) codeine Adverse Reaction (Verified 09/28/17 17:57) haloperidol [From Haldol] Adverse Reaction (Verified 09/28/17 17:57) Sulfa (Sulfonamide Antibiotics) Adverse Reaction (Verified 09/28/17 17:57) Home Medications: Ambulatory Orders Amlodipine Besylate [Norvasc] 2.5 mg PO BEDTIME 09/13/17 Aspirin 81 mg PO DAILY 09/13/17 Calcium Carbonate/Vitamin D3 [Calcium 1,000 + D3 Caplet] 1 each PO DAILY Enalapril Maleate [Vasotec] 5 mg PO DAILY 09/13/17 Furosemide [Lasix] 20 mg PO DAILY 09/13/17 Hydrocodone Bit/Acetaminophen [Lortab 5-500] 1 tab PO Q4-6H PRN 09/13/17 Lovastatin 80 mg PO BEDTIME 09/13/17 Metoprolol Tartrate [Lopressor] 25 mg PO BID 09/13/17 Montelukast Sodium [Singulair] 10 mg PO BEDTIME 09/13/17 Potassium Chloride [K-Tab ER] 10 meq PO DAILY #30 tablet.er 09/17/17 Alprazolam [Xanax] 0.25 mg PO DAILY PRN #30 tablet 09/20/17 Amoxicillin 250 mg PO BID #14 capsule 09/20/17 Metronidazole [Flagyl] 250 mg PO BID #14 tablet 09/20/17 Omeprazole Magnesium [Prilosec Otc] 20 mg PO BID #1 tablet. 09/20/17
[2017-09-28] MEDS ORDERED: NORVASC PO STA (19:04)
[2017-09-28] MEDS ORDERED: VASOTEC PO STA (19:04)
[2017-09-28] MEDS: ATIVAN IVP STA (19:09)
[2017-09-28] MEDS: CATAPRES PO STA (19:18)
[2017-09-28 19:49] VITALS: BP 156/45
--- NOTE | 2017-09-29 06:24 | DI ---
EXAMINATION: AP chest radiograph. HISTORY: Chest pain COMPARISON: 09/18/2017 FINDINGS: No focal consolidation, pleural effusion or pneumothorax is identified. The cardiomediastinal silhouette is within normal limits. Sternotomy wires are seen. There is calcif ied plaque of the aorta. There is remote appearing fracture of the left third anterior rib. I proximal humeral deformity is a gain seen. IMPRESSION: No acute cardiopulmonary findings.
== END 2017-09-28 19:58 | disposition home or self-care (01) ==
LOC: ED 17:47
DX: F41.9 Anxiety disorder, unspecified (principal); R07.89 Other chest pain; I10 Essential (primary) hypertension; R06.00 Dyspnea, unspecified; I25.10 Atherosclerotic heart disease of native coronary artery without angina pectoris; E78.5 Hyperlipidemia, unspecified; Z86.73 Personal history of transient ischemic attack (TIA), and cerebral infarction without residual deficits; Z95.5 Presence of coronary angioplasty implant and graft; Z95.2 Presence of prosthetic heart valve; Z79.899 Other long term (current) drug therapy
CPT/HCPCS: 36415; 80053; 81001; 82550; 83880; 84484; 85025; 93005; 93010; 96374; 99283